=== PATIENT | male | born 1965 | race Caucasian/White ===

== ENCOUNTER 2017-01-06 20:20 | Inpatient (IN) | payer OTHER, MEDICAID ==
[~2017-01-06] VITALS: Ht 188 cm; Wt 103.1 kg
[~2017-01-06 20:20] MED LIST: LORA-303 PO; NOMED
[2017-01-06 20:23] VITALS: BP 153/94; PULSE 106; RESP 20; O2SAT 96
--- NOTE | 2017-01-06 21:07 | ED.REPORT ---
HPI-Allergic Reaction Date of Service Jan 06, 2017 ED Provider: Doc,Ed MD Nursing Notes Stated Complaint: DETOX Chief Complaint: Substance Abuse Nursing Notes Reviewed: Yes Allergies: Coded Allergies: No Known Allergies (Verified Allergy, Unknown, 01/06/17) Scheduled Lorazepam (Ativan) 1 Mg Tablet 1 MG PO ASDIRECTED 1 tablet 3 times a day for 24 hours, then 1 tablet twice a day for 24 hours, then 1 tablet on day 3 Miscellaneous Medications No Historical Medication (No Historical Medication) Ea General Time Seen by MD: 21:08 Past Medical History Past Medical History Alcohol and meth abuse Past Surgical History head injury 2000 Family History alcoholism Smoking History Current Every Day Smoker Social History Drug Use: Meth Other Social History: Poor social support, Homeless Ambulatory Status Independent Physical Exam Initial Vital Signs Vital Signs (First) Date Time Temp Pulse Resp B/P Pulse Ox O2 Delivery O2 Flow Rate FiO2 01/06/17 20:23 37.0 106 20 153/94 96 Room Air Discharge & Departure Referrals: NOPCP (PCP) Enrique West MD Jan 06, 2017 21:07
--- NOTE | 2017-01-06 21:10 | ED.REPORT ---
HPI-Overdose/Alcohol Toxicity Date of Service Jan 06, 2017 ED Provider: Enrique West MD A 51 year old male with a history of recent heart attack or stroke, methamphetamine abuse, heroin abuse and alcohol abuse presents to the ED requesting detox. The pt has been on a two year relapse following a period of sobriety and states that he is "tired of living this way." The pt usually smokes but occasionally shoots. He last used this morning. The pt has been noncompliant with his cardiac medications since he began using and has noticed abdominal pain and lower extremity edema. These symptoms are similar to those he experienced prior to his cardiac or stroke event approximately a year ago. Nursing Notes Stated Complaint: DETOX Chief Complaint: Substance Abuse Nursing Notes Reviewed: Yes Allergies: Coded Allergies: No Known Allergies (Verified Allergy, Unknown, 01/06/17) Scheduled Lorazepam (Ativan) 1 Mg Tablet 1 MG PO ASDIRECTED 1 tablet 3 times a day for 24 hours, then 1 tablet twice a day for 24 hours, then 1 tablet on day 3 Miscellaneous Medications No Historical Medication (No Historical Medication) Ea General Time Seen by Provider: 21:08 Chief Complaint Other (Detox request) Hx Obtained From: Patient Arrived By: Walk-in Onset Occurred: More than a week ago... Symptom Duration: Since onset Similar Sx Previous: Yes Past Medical History Past Medical History Alcohol, heroin and meth abuse [place] Stroke Past Surgical History head injury 2000 cardiac catheterization Family History alcoholism Smoking History Current Every Day Smoker Social History Alcohol Use: >5 per day Drug Use: IV drugs, Meth Other Social History: Poor social support, Homeless Ambulatory Status Independent Review of Systems Review of Systems Note: lower extremity edema Cardiovascular: Denies: Chest pain GI: Reports: Abdominal pain, Denies: Vomiting Skin: Denies Rash Complete sys rev & neg: except as marked. Physical Exam Initial Vital Signs Vital Signs (First) Date Time Temp Pulse Resp B/P Pulse Ox O2 Delivery O2 Flow Rate FiO2 01/06/17 20:23 37.0 106 20 153/94 96 Room Air Initial VS: Reviewed, Vital signs abnormal General/Constitutional: Awake, Alert Appearance / Presentation: Positive: Obese Respiratory / Chest: Atraumatic, Breath sounds NL, Breath sounds = bilat, No respiratory distress Cardiovascular: Heart rate NL, Regular rhythm 3/6 holosystolic murmur Abdomen: Atraumatic, Soft, Non-tender Neurologic: Oriented X3, Speech NL, No motor deficits, No sensory deficits Psychiatric: Affect NL, Mood NL Head / Eyes: Atraumatic, Normocephalic, PERRL, EOMI ENT: Atraumatic, Airway patent, Mucous membranes moist Neck: Atraumatic, Supple, Full range of motion Back: Atraumatic, Full range of motion Skin: Color NL, No rash, Warm, Dry Upper Extremity / MS: Atraumatic, Full range of motion Lower Extremity / Pelvis / MS: Atraumatic, Full range of motion 2+ pitting edema bilaterally, R>L Interpretation & Diagnostics Lab Results Interpretation Result Diagram: 01/06/17 2214 01/06/17 2214 Test 01/06/17 22:14 01/07/17 00:17 White Blood Count 7.5th/mm3 (3.8-10.1) Red Blood Count 4.33mil/mm3 (4.40-5.80) Hemoglobin 12.8g/dL (13.8-17.2) Hematocrit 38.7% (41.0-50.0) Mean Corpuscular Volume 89.4fL (81-100) Mean Corpuscular Hemoglobin 29.6pg (27.0-35.0) Mean Corpuscular Hemoglobin Concent 33.1% (32.0-37.0) Red Cell Distribution Width 17.4% (12.3-15.4) Platelet Count 167bil/L (150-400) Neutrophils (%) (Auto) 58.8% (40-74) Lymphocytes (%) (Auto) 25.8% (14-46) Monocytes (%) (Auto) 11.9% (4-12) Eosinophils (%) (Auto) 2.7% (0-5) Basophils (%) (Auto) 0.7% (0-3) Prothrombin Time 12.2sec (8.1-12.5) Prothromb Time International Ratio 1.14ratio Sodium Level 142mEq/L (134-144) Potassium Level 3.9mEq/L (3.5-5.2) Chloride Level 106mEq/L (97-108) Carbon Dioxide Level 20mmol/L (18-29) Blood Urea Nitrogen 25mg/dL (6-24) Creatinine 1.00mg/dL (0.76-1.27) Estimat Glomerular Filtration Rate 84mL/min (>59) Glucose Level 146mg/dL (60-99) Calcium Level 8.5mg/dL (8.5-10.1) Magnesium Level 1.7mg/dL (1.6-2.6) Total Bilirubin 0.7mg/dL (0.0-1.2) Aspartate Amino Transf (AST/SGOT) 46U/L (0-50) Alanine Aminotransferase (ALT/SGPT) 38U/L (0-44) Alkaline Phosphatase 86U/L (25-150) Total Protein 6.3g/dL (6.4-8.4) Albumin 3.5g/dL (3.4-5.0) Hold Marin Top Tube Received (Received) Hold Urine Received (Received) Lab Results Interpretation: Elevated troponin ECG Interpretation ECG Interpretation: sinus tachycardia with a rate of 101 probable left atrial enlargement anteroseptal infarct, old Time: 21:43 Interpreted by: ED physician X-Ray Chest Interpretation Chest Xray Interpretation: mildly enlarged heart no acute findings Interpretation / Wet Read by: Wet read ED physician Re-Eval/Medical Decision Med Decision/Clinical Course 51-year-old male who was brought up short by his mother's illness. She requested that he leave her bedside and go get clean and sober, which he is attempting to do. He has started to have mild withdrawal symptoms. He has had some chest discomfort, but no ongoing chest pain. Labs are unremarkable with the exception of an elevated troponin. EKG shows no evidence of ischemia or injury. He will be admitted for alcohol withdrawal management and troponin and EKG trending. Source of Hx: Old records Re-Evaluation/Progress : Time of Eval: 23:19 Patient Status: Condition improved Re-Evaluation/Progress Note: Pt rechecked, who is resting comfortably. The diagnosis and plan for admission are discussed. The pt understands and agrees with the plan. All questions are addressed at this time. Consultation #1: Call Returned at: 21:31 Note: Spoke with [facility] to determine bed availability. No beds are available at this time. Consultation #2: Referral / Consult Name: Dionicio Perez MD Consulted With: Hospitalist Call Returned at: 23:33 Mechanical Maintenance Foreman: Agrees with eval, Agrees with plan, Accepts admit Note: Spoke with Dr. Perez, hospitalist, regarding pt's case. Dr. Perez agrees with the evaluation and agrees to admit the pt. Counseled Regarding: Diagnosis, Lab results, Need for admission Discharge & Departure Impression: Primary Impression: Alcohol withdrawal Complication of substance-induced condition: uncomplicated Qualified Code: F10.230 - Alcohol dependence with withdrawal, uncomplicated Additional Impressions: Opiate withdrawal Elevated troponin Disposition: ADMITTED TO HOSPITAL Discharge Condition All VS Reviewed: Yes Condition: Stable Referrals: [facility] [employer] Portions of this note were transcribed by Maynor Pride. I, Dr. West personally performed the history, physical exam and medical decision-making; I reviewed and confirmed the accuracy of the information in the transcribed note. Signed by: Catalina Perera, 01/06/2017 and 0498. copies to: [facility] ; [facility]; [facility] Enrique West MD Jan 06, 2017 21:10 MAYNOR PRIDE Jan 06, 2017 21:28 copies to: [facility] ; [facility]; [facility] Enrique West MD Jan 06, 2017 21:10 MAYNOR PRIDE Jan 06, 2017 21:28
[2017-01-06 22:20] LABS: BASOPHILS % (AUTO) 0.7 % (0-3); EOSINOPHILS % (AUTO) 2.7 % (0-5); MONOCYTES % (AUTO) 11.9 % (4-12); Mean Corpuscular Hemoglobin 29.6 pg (27.0-35.0); Mean Corpuscular Volume 89.4 fL (81-100); NEUTROPHILS % (AUTO) 58.8 % (40-74); Platelet Count 167 bil/L (150-400)
[2017-01-06 22:34] LABS: INR 1.14 ratio
[2017-01-06 22:41] LABS: TROPONIN T 0.015 ug/L (0.0-0.011)
[2017-01-06 22:52] VITALS: BP 142/90; PULSE 94; RESP 18; O2SAT 97
[2017-01-06 22:53] LABS: Magnesium 1.7 mg/dL (1.6-2.6)
[2017-01-06] MEDS ORDERED: Polyethylene Glycol (PEG) 17 Gm Powder PO PRN (23:40)
[2017-01-06] MEDS ORDERED: Alum-Mag Hydrox-Simeth 30 mL Suspension PO PRN (23:40)
[2017-01-06] MEDS ORDERED: Ondansetron 2 mg/mL 2 mL Inj IVPUSH PRN (23:40)
[2017-01-06] MEDS ORDERED: Thiamine Inj 100 MG, Folic Acid Inj 1 MG, Magnesium Sulfate 50% Inj 2 GM, Multivitamins... IV ONE ×5 (23:40)
[2017-01-07] VITALS (8 sets, daily range): BP systolic 135–155; BP diastolic 88–120; PULSE 91–99; RESP 18–24; O2SAT 97–100
--- NOTE | 2017-01-07 00:18 | PCM.HPMED ---
Subjective Date of Service Jan 07, 2017 Primary Provider: Admitting Physician: Primary Care Physician: Noemi Attending Physician: Admit Status: From the Emergency Department, Full Admit, PCC Telemetry Chief Complaint: Requesting Detox History of Present Illness: Mary Lou Munroe is a 51 year old male with reported history of Coronary disease, methamphetamine abuse, heroin abuse and alcohol abuse who presents to [facility] emergency department requesting detox. The pt has been on a two year relapse following a period of sobriety and states that he is "tired of living this way." He also reported he was devastated that he broke up with his long time girlfriend and started drinking again to cope. His last drink was this morning. He also shoots Heroine and Meth about injected himself 4 days ago. He has chest tightness, 2/10 intensity with no radiation. Denies any diaphoresis and no dyspnea. No relieving or exacerbating factor. He did report it was similar to symptoms prior to when he had a heart attack 6 years ago in [facility]. He also reported he had a Stroke The pt has been noncompliant with his cardiac medications since he began using which was 4 months ago. These symptoms are similar to those he experienced prior to his cardiac or stroke event approximately a year ago. Review of Systems: Pertinent positives as noted in HPI. All other systems were reviewed and are negative Allergies Coded Allergies: No Known Allergies (Verified Allergy, Unknown, 01/06/17) Home Medications Patient has not taken any prescription medications for the last 4 months PMH Alcohol Abuse Coronary disease. Last hospitalized 6 years ago in [facility] Stroke Heroine and Meth Abuse . 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 Father drank himself to Mother healthy, lives in [place] Social History Hx Alcohol Use: Yes Hx Substance Use: Yes (marijuana, meth) Hx Tobacco Use: Yes Smoking Status: Current Every Day Smoker Living Arrangement: Homeless (lives at [place] house) Exam Vital Signs Vital Sign - Last Date Time Temp Pulse Resp B/P Pulse Ox O2 Delivery O2 Flow Rate FiO2 01/06/17 22:52 37.0 94 18 142/90 97 Room Air Exam General: Alert, Oriented X3, Cooperative, No acute Distress Eyes: PERRLA, Scleral Anicteric Mouth: Mouth Normal, Mucous Membranes Moist/[place] Neck: Supple, no Thyromegaly, trachea central. Chest & Lungs: Clear to auscultation & percussion, No adventitious breath sounds, no crackles, no wheeze Cardiovascular: Normal S1, Normal S2, No Murmurs/Rubs/Gallops, Regular Rate/ Rhythm, (No JVD, no peripheral edema) Pulses: Radial (present and equal), Dorsalis Pedi (present and equal) Abdomen: Soft, Non-tender, Non-distended, Normoactive bowel tones. Musculoskeletal: Unremarkable. Normal range of motion, no swollen or erythematous joints Extremities: No edema, no cyanosis, no clubbing. Skin: No rashes. Warm and dry, no erythematous areas Neurological: Grossly neurologically intact, Normal Speech, Sensation Intact Lymphatic: Lymph nodes Cervical and Axillary not palpable. Lab and Diagnostics Labs Laboratory Tests Test 01/06/17 22:14 White Blood Count 7.5th/mm3 (3.8-10.1) Red Blood Count 4.33mil/mm3 (4.40-5.80) Hemoglobin 12.8g/dL (13.8-17.2) Hematocrit 38.7% (41.0-50.0) Mean Corpuscular Volume 89.4fL (81-100) Mean Corpuscular Hemoglobin 29.6pg (27.0-35.0) Mean Corpuscular Hemoglobin Concent 33.1% (32.0-37.0) Red Cell Distribution Width 17.4% (12.3-15.4) Platelet Count 167bil/L (150-400) Neutrophils (%) (Auto) 58.8% (40-74) Lymphocytes (%) (Auto) 25.8% (14-46) Monocytes (%) (Auto) 11.9% (4-12) Eosinophils (%) (Auto) 2.7% (0-5) Basophils (%) (Auto) 0.7% (0-3) Prothrombin Time 12.2sec (8.1-12.5) Prothromb Time International Ratio 1.14ratio Sodium Level 142mEq/L (134-144) Potassium Level 3.9mEq/L (3.5-5.2) Chloride Level 106mEq/L (97-108) Carbon Dioxide Level 20mmol/L (18-29) Blood Urea Nitrogen 25mg/dL (6-24) Creatinine 1.00mg/dL (0.76-1.27) Estimat Glomerular Filtration Rate 84mL/min (>59) Glucose Level 146mg/dL (60-99) Calcium Level 8.5mg/dL (8.5-10.1) Magnesium Level 1.7mg/dL (1.6-2.6) Total Bilirubin 0.7mg/dL (0.0-1.2) Aspartate Amino Transf (AST/SGOT) 46U/L (0-50) Alanine Aminotransferase (ALT/SGPT) 38U/L (0-44) Alkaline Phosphatase 86U/L (25-150) Troponin T 0.015ug/L (0.0-0.011) Total Protein 6.3g/dL (6.4-8.4) Albumin 3.5g/dL (3.4-5.0) Hold Marin Top Tube Received (Received) Result Diagram: 01/06/17221301/06/172213 Assessment & Plan Mary Lou Munroe is a 51 year old male with reported history of Coronary disease, methamphetamine abuse, heroin abuse and alcohol abuse who presents to [facility] emergency department requesting detox but was found to have elevated troponin 1. Alcohol Intoxication and withdrawal syndrome. Present on admission No detox bed available tonight and will be closely monitored in the hospital. Last drank this morning. History of Alcohol withdrawal seizures. Patient has previously had detox years ago - [facility] protocol initiated - manager audio consult for placement and resources - continue Thiamine replacement and Banana bag 2 Elevated troponin. Present on admission Suspect demand ischemia but patient reporting history of Coronary disease therefore Non ST elevation Myocardial infarction. EKG showed ischemic changes and no ischemia symptoms - monitor on telemetry - complete echo tomorrow - trending troponin overnight - Aspirin for antiplatelet therapy - consider Heparin drip if pain persists - prescriptions needs upon discharge 3 Polysubstance abuse (Heroine and Meth) Risk for endocarditis but no infectious symptoms at this time. - monitor for withdrawal symptoms 4 Nicotine dependence Cessation discussed and encouraged - Nicotine patch upon request - Acetaminophen as needed for mild pain/fever/headache - Bowel regimen as needed - Antiemetic as needed Patient admitted under inpatient status with expected length of stay > 2 midnights for severity of present symptoms, complexities of treatment plan and risk for adverse event . VTE Prophylaxis: Sub-Q Heparin (Unfractionated) Resuscitation Status: CPR: Attempt Resuscitation Dionicio Perez MD Jan 07, 2017 00:18
[2017-01-07] MEDS: Heparin 5,000 Unit/mL Inj SUBQ SCH ×3 (01:37→15:57)
[2017-01-07] MEDS: 0.9% Sodium Chloride 1,000 ML IV SCH ×3 (02:40→22:06)
--- NOTE | 2017-01-07 05:25 | NUR ---
Admit/CIWA Admitted pt from ED wanting to be detoxified. Pt reports of mild chest pain, mild sob, and moderate headache. CIWA score of the beginning. Upon reassessment currently on 2. Pt has been npo after a snack. Telemetry monitoring noted no abnormal ektopy. Monitoring closely. Addendum: 01/07/17 at 0605 by PJ KOENIG RN CIWA score of 13 at the end of shift. profuse sweating and headache. Reports of feeling nauseated and mild chest tightness. administered 5 mg diazepam per ciwa protocol. Addendum: 01/07/17 at 0628 by PJ KOENIG RN Reassessment post valium. CIWA of 6, pt is asleep.
[2017-01-07] MEDS: Multivit-Miner-Folic Acid-Iron Tablet PO SCH (08:29)
--- NOTE | 2017-01-07 11:04 | DRSVH ---
PROCEDURE: X-RAY CHEST, TWO VIEWS ([id number]) INDICATIONS: chest pain, murmur TECHNIQUE: 2 views of the chest were acquired. COMPARISON: None. FINDINGS: Surgical changes and devices: None. Lungs and pleura: No pleural effusions or pneumothorax. Lungs are clear. Mediastinum: Mediastinal contours are normal. Heart size is normal. Bones and chest wall: No suspicious bony abnormalities. Soft tissues appear unremarkable. IMPRESSION: No radiographic evidence of acute cardiopulmonary pathology. Dictated by: Igor Ojeda M.D. on 01/07/2017 at 8:35 Approved by: Igor Ojeda M.D. on 01/07/2017 at 8:35
[2017-01-07] MEDS: MeTOProlol XL 25 mg ER24 Tablet PO SCH (11:17)
--- NOTE | 2017-01-07 13:09 | NUR ---
spiritual care: pt request Visited with pt this morning who was glad to have a core winding operator visit. Talked about rochelle, addiction, and sobriety. Pt is committed to getting sober again after an intense conversation with his mother in [place]. Pt requested to speak to a hospital social worker regarding rehab placement following his hospital stay. Pt requested a [employer] bible which I provided for him. Blessed him. Spiritual care will continue to follow as needed.
--- NOTE | 2017-01-07 14:29 | PCM.PNMED ---
Subjective Date of Service Jan 07, 2017 Subjective less withdrawal symptoms today.CIWA 6. Troponin trended down. Exam Vital Signs Vital Sign - Last Date Time Temp Pulse Resp B/P Pulse Ox O2 Delivery O2 Flow Rate FiO2 01/07/17 10:31 96 01/07/17 09:45 36.8 20 147/104 97 Room Air Intake and Output 01/06/17 01/06/17 01/07/17 Cumulative From/Thru 15:00 23:00 07:00 01/06/17 20:23 - 01/07/17 06:22 Intake Total 2482 ml 2482 ml Balance 2482 ml 2482 ml Intake Oral 636 ml 636 ml IV Total 1846 ml 1846 ml # Voids 1 1 Exam General: Alert, Oriented X3, Cooperative, No acute Distress Eyes: PERRLA, Scleral Anicteric Mouth: Mouth Normal, Mucous Membranes Moist/[place] Neck: Supple, no Thyromegaly, trachea central. Chest & Lungs: Clear to auscultation & percussion, No adventitious breath sounds, no crackles, no wheeze Cardiovascular: Normal S1, Normal S2, No Murmurs/Rubs/Gallops, Regular Rate/ Rhythm, (No JVD, no peripheral edema) Pulses: Radial (present and equal), Dorsalis Pedi (present and equal) Abdomen: Soft, Non-tender, Non-distended, Normoactive bowel tones. Musculoskeletal: Unremarkable. Normal range of motion, no swollen or erythematous joints Extremities: No edema, no cyanosis, no clubbing. Skin: No rashes. Warm and dry, no erythematous areas Neurological: Grossly neurologically intact, Normal Speech, Sensation Intact Lymphatic: Lymph nodes Cervical and Axillary not palpable. IVs and Medications Medications Reviewed: Medications were reviewed in detail Lab and Diagnostics Result Diagram: 01/06/17221301/06/172213 Assessment & Plan Mary Lou Munroe is a 51 year old male with reported history of Coronary disease, methamphetamine abuse, heroin abuse and alcohol abuse who presents to [facility] emergency department requesting detox but was found to have elevated troponin #. Alcohol Intoxication and withdrawal syndrome. Present on admission No detox bed available tonight and will be closely monitored in the hospital. Last drank this morning. History of Alcohol withdrawal seizures. Patient has previously had detox years ago - [facility] protocol initiated - manager pet consult for placement and resources - continue Thiamine replacement and Banana bag # Elevated troponin. Present on admission Suspect demand ischemia but patient reporting history of Coronary disease therefore Non ST elevation Myocardial infarction. EKG showed ischemic changes and no ischemia symptoms - monitor on telemetry - complete echo pending -down trending troponin - Aspirin , atorvastatin and metoprolol started - prescriptions needs upon discharge for ASA,BB and statin # History of CAD -Aspirin , atorvastatin and metoprolol started # Polysubstance abuse (Heroine and Meth) Risk for endocarditis but no infectious symptoms at this time. - monitor for withdrawal symptoms #Nicotine dependence Cessation discussed and encouraged - Nicotine patch upon request - Acetaminophen as needed for mild pain/fever/headache - Bowel regimen as needed - Antiemetic as needed Disposition: Possible discharge tomorrow if inpatient rehabilitation placement is available if echocardiogram is unrevealing VTE Prophylaxis: Sub-Q Heparin (Unfractionated) Resuscitation Status: CPR: Attempt Resuscitation Adalid Almaraz MD Jan 07, 2017 14:29
--- NOTE | 2017-01-07 15:47 | NUR ---
Daily update Patient has denied pain all day. Patient has had lower CIWA scores or 3-5 most of day. This afternoon patient has CIWA score of 12 and was administered IV Diazepam as ordered. Patient was found to have fluctuating oxygen saturations while sleeping (with and without the use of Diazepam) from lower 80's - mid 90's. Will continue to monitor while sleeping to assess the need for possible supplemental oxygen while sleeping.
--- NOTE | 2017-01-07 16:43 | DRSVH ---
[facility] [address] [place] [address] Echocardiogram Report Name: UMA BERRY RStudy Date: 01/07/2017 Height: 74 in Hospital Exam Location: [facility] Weight: 263 lb Gender: Male BSA: 2.4 m2 : 1965 Age: 51 yrs BP: 145/101 mmHg Reason For Study: Elevated Troponins Ordering Physician: Performed By: Yudi Feldman Referring Physician: LOREN DALTON Interpretation Summary The left ventricle is severely dilated. Left ventricular ejection fraction is estimated to be 20 +/- 5%. There is severe global hypokinesis of the left ventricle. There is severe mitral regurgitation. The right ventricular systolic pressure is estimated at 37 mmHg assuming a right atrial pressure of 15 mm Hg. Procedure: A two-dimensional transthoracic echocardiogram with color flow and Doppler was performed. The study quality was technically adequate. There is no prior echocardiogram noted for this patient. The patient was in normal sinus rhythm during the exam. Left Ventricle: The left ventricle is severely dilated. Left ventricular wall thickness is at the upper limits of normal. Left ventricular ejection fraction is estimated to be 20 +/- 5%. There is severe global hypokinesis of the left ventricle. Right Ventricle: The right ventricle is moderate to severely dilated. Right ventricular systolic function is mildly reduced. Atria: The left atrium is moderately dilated. The right atrium is moderately dilated. The interatrial septum is intact with no evidence for an atrial septal defect. Mitral Valve: The mitral valve leaflets are mildly calcified. There is mild to moderate mitral annular calcification. The mitral valve mean gradient is 4 mmHg. There is severe mitral regurgitation. Aortic Valve: The aortic valve is trileaflet. The aortic valve is slightly calcified. No aortic regurgitation is present. Tricuspid Valve: The tricuspid valve is normal in structure but is abnormal in function. Incomplete coaptation of the tricuspid valve leaflets. There is moderate to severe tricuspid regurgitation. The right ventricular systolic pressure is estimated at 37 mmHg assuming a right atrial pressure of 15 mm Hg. Pulmonic Valve: The pulmonic valve is not well visualized. There is a trace or physiologic amount of pulmonic regurgitation. Great Vessels: The aortic root is normal size. The ascending aorta is at the upper limits of normal in size. The IVC is dilated (diameter is greater than 2.1 cm) and it collapses less than 50% with a sniff. This suggests a high right atrial pressure of 15 mm Hg. Pericardium/ Pleura There is a trivial pericardial effusion noted. There is an anterior echo-free space consistent with a fat pad. There is no pleural effusion. MMode/2D Measurements & Calculations LVIDd: 6.7 cm RA long axis: 6.5 cm LVOT diam LVIDs: 5.7 cm LA A2 area: 26.8 cm FS: 15.1 % LA A4 area: 32.5 cm RA area: 21.5 cm asc Aorta IVSd: 0.98 cm LA length (vol): 6.8 cm RA vol: 60.5 ml Diam: 3.6 cm LVPWd: 1.2 cm LA vol: 108.6 ml RA : 24.8 ml/m2 LA vol index: 44.5 ml/m IVC diam: 2.9 cm EDV(MOD-sp2) LV squires. diameter/BSA LV sys. diameter/BSA (cm/m^2): 2.7 (cm/m^2): 2.3 ESV(MOD-sp2) EF(MOD-sp2) Doppler Measurements & Calculations Ao V2 max: 86.7 cm/sec MVA(VTI) TR max chilango MV V2 mean Ao max P.0 mmHg : 233.5 cm/sec : 92.4 cm/sec Ao mean P.1 mmHg : 1.9 cm2 TR max P.9 mmHgMV mean PG LVOT Max Chilango MR ERO PA V2 max : 79.2 cm/sec : 0.57 2m : 53.0 cm/sec MV V2 VTI PA mean PG : 24.3 cm TERRI(I,D): 3.3 cm : 0.50 mmHg sev ratio: 0.79 Ao V2 mean: 70.2 cm/sec LV V1 max PG MR flow rate PA V2 mean Ao V2 VTI: 13.9 cm : 281.6 cm3/sec : 32.3 cm/sec TERRI(V,D): 3.8 cm2 LV V1 VTI MR PISA radius PA pr(Accel) : 11.0 cm : 25.0 mmHg TERRI indexed to BSA (cm^2/m^2): 1.3 Electronically signed by: Jason Hillman on Reading Physician:01/07/2017 04:42 PM
--- NOTE | 2017-01-07 17:36 | NUR ---
Social Work Note: CD Assessment D/A: PATTERNMAKER PLASTER received order for CD assessment. P: PATTERNMAKER PLASTER met with Pt and discussed the option for a full CD assessment with CDP Puja Mckay. Pt was agreeable to this and signed an JAIRON for this PATTERNMAKER PLASTER to refer to Puja for a CD assessment. PATTERNMAKER PLASTER placed Pt's JAIRON in his chart and provided a copy to Puja Mckay. REBECCA Iglesias, AAC
[2017-01-08] VITALS (9 sets, daily range): BP systolic 135–158; BP diastolic 95–114; PULSE 82–94; RESP 19–24; O2SAT 95–100
[2017-01-08] MEDS: Heparin 5,000 Unit/mL Inj SUBQ SCH ×3 (00:30→18:13)
--- NOTE | 2017-01-08 06:19 | NUR ---
CP/CIWA/Resp At beginning of shift pt had one episode to CP but pointing to epigastric area when asked where pain was, no radiating pain, EKG taken, read by discharge rn and found to be unremarkable. Pt desats into 70-80's when asleep, significant sleep apnea noted. Pt placed on 2L O2 per NC and cont. pulse oxy but pt keeps taking O2 off frequently. CIWA score between 15-17, Valium IV given x4, pt asleep for 2-3 hrs after each administration but has restless during sleep, moaning and groaning, reports nightmares and wakes up confused and needs some time to reorient. Pt pleasant and cooperative but increasingly unsteady and occ. incontinent. Bedalarm activated for safety.
[2017-01-08] MEDS: 0.9% Sodium Chloride 1,000 ML IV SCH (08:27)
[2017-01-08] MEDS: Multivit-Miner-Folic Acid-Iron Tablet PO SCH (08:28)
[2017-01-08] MEDS: MeTOProlol XL 25 mg ER24 Tablet PO SCH (08:30)
[2017-01-08 09:12] LABS: BASOPHILS % (AUTO) 0.5 % (0-3); EOSINOPHILS % (AUTO) 2.2 % (0-5); MONOCYTES % (AUTO) 9.7 % (4-12); Mean Corpuscular Hemoglobin 29.9 pg (27.0-35.0); Mean Corpuscular Volume 92.6 fL (81-100); NEUTROPHILS % (AUTO) 57.6 % (40-74); Platelet Count 170 bil/L (150-400)
[2017-01-08 09:19] LABS: Magnesium 1.9 mg/dL (1.6-2.6); Phosphorus 3.9 mg/dL (2.5-4.9)
--- NOTE | 2017-01-08 14:48 | PCM.PNMED ---
Subjective Date of Service Jan 08, 2017 Subjective he states he has shakiness ,CIWA 15-17 overnight Exam Vital Signs Vital Sign - Last Date Time Temp Pulse Resp B/P Pulse Ox O2 Delivery O2 Flow Rate FiO2 01/08/17 13:24 37.0 86 22 158/114 100 Room Air Intake and Output 01/07/17 01/07/17 01/08/17 Cumulative From/Thru 15:00 23:00 07:00 01/06/17 20:23 - 01/08/17 05:59 Intake Total 2099 ml 1666 ml 6247 ml Output Total 200 ml 300 ml 500 ml Balance 1899 ml 1366 ml 5747 ml Intake Oral 860 ml 549 ml 2045 ml IV Total 1239 ml 1117 ml 4202 ml Output Urine Total 200 ml 300 ml 500 ml # Voids 1 2 # Bowel Movements 0 0 Exam General: Alert, Oriented X3, Cooperative, No acute Distress Eyes: PERRLA, Scleral Anicteric Mouth: Mouth Normal, Mucous Membranes Moist/[place] Neck: Supple, no Thyromegaly, trachea central. Chest & Lungs: Crackles at lung bases Cardiovascular: Normal S1, Normal S2, No Murmurs/Rubs/Gallops, Regular Rate/ Rhythm, (No JVD, no peripheral edema) Pulses: Radial (present and equal), Dorsalis Pedi (present and equal) Abdomen: Soft, Non-tender, Non-distended, Normoactive bowel tones. Musculoskeletal: Unremarkable. Normal range of motion, no swollen or erythematous joints Extremities: No edema, no cyanosis, no clubbing. Skin: No rashes. Warm and dry, no erythematous areas Neurological: Grossly neurologically intact, Normal Speech, Sensation Intact Lymphatic: Lymph nodes Cervical and Axillary not palpable. IVs and Medications Medications Reviewed: Medications were reviewed in detail Lab and Diagnostics Result Diagram: 01/08/1782501/08/17825 X-Rays, CTs and MRIs PROCEDURE: X-RAY CHEST, TWO VIEWS ([id number]) INDICATIONS: chest pain, murmur TECHNIQUE: 2 views of the chest were acquired. COMPARISON: None. FINDINGS: Surgical changes and devices: None. Lungs and pleura: No pleural effusions or pneumothorax. Lungs are clear. Mediastinum: Mediastinal contours are normal. Heart size is normal. Bones and chest wall: No suspicious bony abnormalities. Soft tissues appear unremarkable. IMPRESSION: No radiographic evidence of acute cardiopulmonary pathology. Dictated by: Igor Ojeda M.D. on 01/07/2017 at 8:35 Cardiac Echo Impressions The left ventricle is severely dilated. Left ventricular ejection fraction is estimated to be 20 +/- 5%. There is severe global hypokinesis of the left ventricle. There is severe mitral regurgitation. The right ventricular systolic pressure is estimated at 37 mmHg assuming a right atrial pressure of 15 mm Hg. Assessment & Plan Mary Lou Munroe is a 51 year old male with reported history of Coronary disease, methamphetamine abuse, heroin abuse and alcohol abuse who presents to [facility] emergency department requesting detox but was found to have elevated troponin #. Alcohol Intoxication and withdrawal syndrome. Present on admission No detox bed available tonight and will be closely monitored in the hospital. Last drank this morning. History of Alcohol withdrawal seizures. Patient has previously had detox years ago - [facility] protocol initiated - manager validation consult for placement and resources - continue Thiamine replacement and Banana bag # systolic CHF, probably chronic, due to ischemic cardiomyopathy versus chronic cardiomyopathy -Echocardiogram EF 20% -Patient had history of [place] 6 years ago. No echocardiogram to compare with. He presented with mild chest pain 2/10 and borderline troponin. Discussed with cardiology . Patient not in acute decompensation. Patient noncompliant on medications and started on aspirin, statin and beta estella yesterday.not a candidate for intervention. We will optimize CHF regimen and advise patient to see clinical documentation consultant Dr Soler outpatient for workup of cardiomyopathy. Encouraged to quit alcohol -Continue aspirin, statin, metoprolol. added lisinopril 10 mg daily # Elevated troponin. Present on admission - EKG showed no ischemic changes. No EKG to compare with - monitor on telemetry - complete echo as above -down trending troponin . Level was borderline and unlikely to represent acute infarction - Continue Aspirin , atorvastatin and metoprolol - prescriptions needs upon discharge for ASA,BB ,ACEI and statin # History of CAD -Aspirin , atorvastatin and metoprolol,ACEI started # Polysubstance abuse (Heroine and Meth) Risk for endocarditis but no infectious symptoms at this time. - monitor for withdrawal symptoms #Nicotine dependence Cessation discussed and encouraged - Nicotine patch upon request - Acetaminophen as needed for mild pain/fever/headache - Bowel regimen as needed - Antiemetic as needed Disposition: Possible discharge in 1-2 days if inpatient rehabilitation placement is available VTE Prophylaxis: Sub-Q Heparin (Unfractionated) Resuscitation Status: CPR: Attempt Resuscitation Adalid Almaraz MD Jan 08, 2017 14:48
[2017-01-08] MEDS ORDERED: Furosemide 10 mg/mL 4 mL Inj IVPUSH ONE (14:55)
--- NOTE | 2017-01-08 16:41 | NUR ---
spiritual care: pt request conversational visit. Pt disclosed his hopes for rehab process and his familiarity with detoxing as well as his body's reactions to physical effects. pt expressed sense of urgency ("don't have the next drink or ") as he described his physical condition and feelings of helplessness. pt explained "i can't move" but he managed to swing his legs onto bed. drowsy,
--- NOTE | 2017-01-08 17:36 | NUR ---
[facility] pt has been scoring a 13 throughout shift. Administered Valium 10 mg IVP X4. Pt seems to get temporary relief and is able to sleep for about two hours. Pt has had intermittent confusion and disorientation. Pt has removed tele X2, oxygen multiple times, and has be urinated on his bed and floor while attempting to use his urinal. Pt has been reminded multiple times to use call light but has failed to do so.
[2017-01-09] VITALS (8 sets, daily range): BP systolic 102–156; BP diastolic 74–120; PULSE 52–90; RESP 13–25; O2SAT 93–99
[2017-01-09] MEDS: Heparin 5,000 Unit/mL Inj SUBQ SCH ×3 (01:00→16:57)
[2017-01-09] MEDS: Dexmedetomidine 400 mCg/100 mL NS Premix IV SCH ×3 (02:40→15:05)
[2017-01-09] MEDS ORDERED: chlordiazePOXIDE 25 mg Capsule PO SCH (03:20)
--- NOTE | 2017-01-09 04:04 | PCM.PNMED ---
Subjective Date of Service Jan 09, 2017 Subjective Overnight Critical Care Progress Note The patient became acutely combative at approximately 01:30 requiring a code Marin to be called followed by 4 point restraints and after failing diazepam therapy required Precedex administration per nursing [facility] protocol orders. Per Nursing report the patient had be alert and oriented at the beginning of shift, however the patient had required more than 100mg total of Diazepam over the course of 7 hours. The patient was already on Precedex IV when he was evaluated by me at which point the patient was fairly cooperative however relatively somnolent in no acute distress. Exam Vital Signs Vital Sign - Last Date Time Temp Pulse Resp B/P Pulse Ox O2 Delivery O2 Flow Rate FiO2 01/09/17 01:07 153/109 01/09/17 01:03 90 24 97 Room Air 01/08/17 22:18 36.5 Intake and Output 01/08/17 01/08/17 01/09/17 Cumulative From/Thru 15:00 23:00 07:00 01/06/17 20:23 - 01/08/17 22:18 Intake Total 1813 ml 8060 ml Output Total 1450 ml 1950 ml Balance 363 ml 6110 ml Intake Oral 1036 ml 3081 ml IV Total 777 ml 4979 ml Output Urine Total 1450 ml 1950 ml # Voids 5 7 # Bowel Movements 1 1 Exam General: Somnolent but Cooperative middle age man in 4 point restraints, in no acute Distress Eyes: Pupils equal round and reactive to light, anicteric sclera, noninjected conjunctiva HENT: Normocephalic atraumatic, moist mucous membranes without central cyanosis Neck: Supple, trachea midline, without thyromegaly or JVD Cardiovascular: Regular rate and regular rhythm, S1-S2 present, without murmurs rubs or gallops noted Lungs: Clear to auscultation bilaterally without wheezing rales or rhonchi Abdomen: Soft, nontender, nondistended, tympanic to percussion, normal active bowel sounds, without organomegaly Extremities: No cyanosis clubbing or edema noted, pulses intact bilaterally at dorsalis pedis and radial : No Juan catheter in place Skin: Warm and dry Neuro: Nonfocal, unable to assess given somnolence Psych: unable to assess given somnolence Lab and Diagnostics Result Diagram: 01/08/1782501/08/17825 X-Rays, CTs and MRIs PROCEDURE: X-RAY CHEST, TWO VIEWS ([id number]) INDICATIONS: chest pain, murmur TECHNIQUE: 2 views of the chest were acquired. COMPARISON: None. FINDINGS: Surgical changes and devices: None. Lungs and pleura: No pleural effusions or pneumothorax. Lungs are clear. Mediastinum: Mediastinal contours are normal. Heart size is normal. Bones and chest wall: No suspicious bony abnormalities. Soft tissues appear unremarkable. IMPRESSION: No radiographic evidence of acute cardiopulmonary pathology. Dictated by: Igor Ojeda M.D. on 01/07/2017 at 8:35 Cardiac Echo Impressions The left ventricle is severely dilated. Left ventricular ejection fraction is estimated to be 20 +/- 5%. There is severe global hypokinesis of the left ventricle. There is severe mitral regurgitation. The right ventricular systolic pressure is estimated at 37 mmHg assuming a right atrial pressure of 15 mm Hg. Assessment & Plan Mary Lou Munroe is a 51 year old male with reported history of Coronary disease, methamphetamine abuse, heroin abuse and alcohol abuse who presents to [facility] emergency department requesting detox but was found to have elevated troponin. #. Alcohol Intoxication and withdrawal syndrome. Present on admission - Last drink on the morning of 01/06. Patient has a history of Alcohol withdrawal seizures. Patient has previously had detox years ago - CIWA protocol initiated, required advancement to Precedex drip per protocol - Scheduled Librium 25mg PO q6 on top of Precedex after patient passed a nurse swallow evaluation, given the need for benzodiazepine administration to avoid alcohol withdrawal seizures - automotive service manager consult for placement and resources - continue Thiamine replacement # History of Polysubstance Abuse, chronic - Reported history of injectable drug use - Hepatitis B, C and HIV ordered VTE Prophylaxis: Sub-Q Heparin (Unfractionated) Resuscitation Status: CPR: Attempt Resuscitation Attending Statement The patient was seen and examined together with Dr. Holden on 01/09 and I agree with the history, exam and plan as outlined in the note above. Lewis Dobbs DO Jan 09, 2017 04:04 Dionicio Perez MD Jan 11, 2017 14:41 acute infarction - Continue Aspirin , atorvastatin and metoprolol - prescriptions needs upon discharge for ASA,BB ,ACEI and statin # History of CAD -Aspirin , atorvastatin and metoprolol,ACEI started # Polysubstance abuse (Heroine and Meth) Risk for endocarditis but no infectious symptoms at this time. - monitor for withdrawal symptoms #Nicotine dependence Cessation discussed and encouraged - Nicotine patch upon request - Acetaminophen as needed for mild pain/fever/headache - Bowel regimen as needed - Antiemetic as needed Disposition: Possible discharge in 1-2 days if inpatient rehabilitation placement is available VTE Prophylaxis: Sub-Q Heparin (Unfractionated) Resuscitation Status: CPR: Attempt Resuscitation Lewis Dobbs DO Jan 09, 2017 04:04
--- NOTE | 2017-01-09 04:49 | NUR ---
CIWA/Transfer CIWA throughout shift 12-25 with noted visual hallucinations and progressively worsening agitation despite prn Valium administration. Transferred to CCU for further monitoring after Valium noted to not be effective. Patient became combative attempting to get physical with staff and threatening to assault staff in room. Do pineda initiated and patient restrained for patient and staff safety. Care assumed by receiving CCU RN. Personal belongings transferred with patient to 2009.
--- NOTE | 2017-01-09 05:10 | NUR ---
Ciwa Transfered into [id number] from [facility]. Precedex gtt started on [facility] and continued in CCU at 0.7mcg/kg/h. CIWA currently 11. 4 point locking restraints placed on [facility] during code pineda and continued in CCU. See Patient scow hand flowsheet. Tele sinus rhythm 60-80. Incontinent of urine prior to admit.
[2017-01-09] MEDS: Multivit-Miner-Folic Acid-Iron Tablet PO SCH (08:30)
[2017-01-09] MEDS: MeTOProlol XL 25 mg ER24 Tablet PO SCH (08:30)
--- NOTE | 2017-01-09 11:00 | NUR ---
Social Work: Screen/Multidisciplinary Rounds D: Per EMR review, pt is a 51 year old male admitted for Alcohol withdrawal/Opiate Withdrawal, Elevated Trop. Pt is [place] Blind/Disabled with [facility] Medicaid. PCP is not listed. NOK is Uriah Munroe, brother. Advanced directives not on file. Readmit risk is low, 07/30. Pt discussed in am rounds. Pt transferred into CCU overnight. Pt signed an JAIRON to complete bedside assessment with [facility]. ER TEMPERATURE CONTROL INSPECTOR has provided this referral and CDP, Puja Mckay, is following and attempted to see the patient overnight to begin assessment. At this time, the pt's CIWA and withdrawal symptoms are a barrier to completing assessment. A: Pt who is currently in CCU. P: TEMPERATURE CONTROL INSPECTOR to continue to follow to assess for discharge needs; CDP from [place] to continue to attempt to meet with the patient to coordinate bedside assessment and assess pt for CD treatment needs. REBECCA Velasquez
[2017-01-09] MEDS: Dextrose 5% 0.45% NaCl 1,000 ML IV SCH (13:34)
[2017-01-09] MEDS ORDERED: PHENobarbital 65 mg/mL Inj IV ONE (14:40)
--- NOTE | 2017-01-09 16:30 | PCM.PNMED ---
Subjective Date of Service Jan 09, 2017 Subjective Overnight Events: Patient became very agitated and aggressive over night, having hallucinations and unresponsive to Valium. He was started on a precedex drip and transferred to the ICU. Today, Mary Lou is confused and asks "where am I" and is not very responsive to direct questions, so it's difficult to subjectively assess how he is. Throughout the day, multiple code percy have been called as he is becoming very agitated and aggressive spontaneously, which has required valium. Exam Vital Signs Vital Sign - Last Date Time Temp Pulse Resp B/P Pulse Ox O2 Delivery O2 Flow Rate FiO2 01/09/17 03:00 80 23 126/82 97 OxyMask 6.00 01/08/17 22:18 36.5 Intake and Output 01/08/17 01/08/17 01/09/17 Cumulative From/Thru 15:00 23:00 07:00 01/06/17 20:23 - 01/09/17 06:25 Intake Total 1813 ml 67 ml 8127 ml Output Total 1450 ml 1950 ml Balance 363 ml 67 ml 6177 ml Intake Oral 1036 ml 3081 ml IV Total 777 ml 67 ml 5046 ml Output Urine Total 1450 ml 1950 ml # Voids 5 1 8 # Bowel Movements 1 1 Exam General: Confused and aggressive throughout the day HEENT: Normocephalic, atraumatic. External ears without defect. Pupils equal, round. Anicteric sclerae, Cardiovascular: Regular rate and rhythm with no murmurs, rubs, or gallops appreciated Pulmonary: Clear to auscultation bilaterally with no crackles, wheezes, or rhonchi. Normal respiratory effort with no use of accessory muscles. Abdomen: Bowel tones present. Soft, nontender, nondistended. Extremities: No clubbing, cyanosis, edema Skin: Normal temperature, turgor, and texture; no rash, ulcers, or subcutaneous nodules appreciated. Neurological: Cranial nerves grossly intact. Normal muscle strength, tone, and bulk. Psychiatric: Confused, unaware of where is he is and why he is here. Lab and Diagnostics Item Value Date Time Ammonia 51 ug/dL 01/07/17 0909 Troponin T 0.014 ug/L H 01/07/17 0220 Troponin T 0.010 ug/L 01/07/17 0909 Troponin T 0.015 ug/L H 01/06/17 2214 Result Diagram: 01/08/1726 01/08/17825 X-Rays, CTs and MRIs PROCEDURE: X-RAY CHEST, TWO VIEWS ([id number]) INDICATIONS: chest pain, murmur TECHNIQUE: 2 views of the chest were acquired. COMPARISON: None. FINDINGS: Surgical changes and devices: None. Lungs and pleura: No pleural effusions or pneumothorax. Lungs are clear. Mediastinum: Mediastinal contours are normal. Heart size is normal. Bones and chest wall: No suspicious bony abnormalities. Soft tissues appear unremarkable. IMPRESSION: No radiographic evidence of acute cardiopulmonary pathology. Dictated by: Igor Ojeda M.D. on 01/07/2017 at 8:35 Cardiac Echo Impressions The left ventricle is severely dilated. Left ventricular ejection fraction is estimated to be 20 +/- 5%. There is severe global hypokinesis of the left ventricle. There is severe mitral regurgitation. The right ventricular systolic pressure is estimated at 37 mmHg assuming a right atrial pressure of 15 mm Hg. Assessment & Plan Mary Lou Munroe is a 51 year old male with reported history of Coronary disease, methamphetamine abuse, heroin abuse and alcohol abuse who presents to [facility] emergency department requesting detox but was found to have elevated troponin. Alcohol Intoxication and withdrawal syndrome. Present on admission No detox bed available tonight and will be closely monitored in the hospital. Last drank this morning. History of Alcohol withdrawal seizures. Patient has previously had detox years ago. During this encounter, he has been very aggressive spontaneously after a somnolent period requiring immediate valium. Valium seems to last almost 3 hours before each episode. - CIWA protocol initiated - manager professional development consult for placement and resources - Continue Thiamine, folate, multivitamin - Patient to recieve Phenobarbitol 130 mg scheduled once in the afternoon and q8h for two more times, to stop tomorrow morning. Valium if CIWA greater than 10. - Lorazepam drip started 1800 on 01/09/17 - Stop Precedex drip evening of 01/09/17. - As patient may also be withdrawing from opiates, Dilaudid 0.5 mg q2h prn and clonidine 0.1 mg patch - Plan for speech evaluation tomorrow - As patient is NPO D51/2NS 60 mL/hr started. Will be cautious as EF of only 20% . Systolic CHF, probably chronic, due to ischemic cardiomyopathy versus chronic cardiomyopathy -Echocardiogram EF 20% -Patient had history of [place] 6 years ago. No echocardiogram to compare with. He presented with mild chest pain 2/10 and borderline troponin. Discussed with cardiology . Patient not in acute decompensation. Patient noncompliant on medications and started on aspirin, statin and beta estella yesterday.not a candidate for intervention. We will optimize CHF regimen and advise patient to see broadcast operations director Dr Soler outpatient for workup of cardiomyopathy. Encouraged to quit alcohol. -Continue aspirin, statin, metoprolol. added lisinopril 10 mg daily Elevated troponin. Present on admission - EKG showed no ischemic changes. No EKG to compare with - monitor on telemetry - complete echo as above - Downtrending troponin . Level was borderline and unlikely to represent acute infarction - Continue Aspirin , atorvastatin and metoprolol - prescriptions needs upon discharge for ASA, BB ,ACEI and statin History of CAD - Aspirin , atorvastatin and metoprolol, ACEI started Polysubstance dependence (Heroine and Meth) Risk for endocarditis but no infectious symptoms at this time. - monitor for withdrawal symptoms Nicotine dependence Cessation discussed and encouraged - Nicotine patch upon request - Acetaminophen as needed for mild pain/fever/headache - Bowel regimen as needed - Antiemetic as needed VTE Prophylaxis: Sub-Q Heparin (Unfractionated) Resuscitation Status: CPR: Attempt Resuscitation Attending Statement A proximally 45 minutes of critical care time was provided for patient in severe alcohol withdrawal requiring close monitoring and rapid, ongoing escalation in medical management. The patient was seen and examined together with Dr. Morrissey on 01/09/2017 and I agree with the history, exam and plan as outlined in the note above. . Dionicio Morrissey DO Jan 09, 2017 06:33 Jorden Silva MD Jan 10, 2017 08:29
[2017-01-09] MEDS ORDERED: HYDROmorphone 0.5 mg/0.5 mL iSecure Syringe IVPUSH PRN (16:55)
[2017-01-09] MEDS: Thiamine Inj 100 MG in Dextrose 5% 50 ML IM SCH (16:58)
--- NOTE | 2017-01-09 17:09 | CONS ---
[address] [address] CONSULTATION REPORT PATIENT: UMA BERRY : 1965 MR#: [id number] ADMIT: 01/07/2017 JOB ID: [id number] DATE OF SERVICE: 01/09/2017 PULMONARY CRITICAL CARE CONSULTATION: This patient is a 51-year-old man with history of polysubstance abuse including methamphetamines, heroin and alcohol, seen in consultation at the request of Dr. Silva for alcohol withdrawal. HISTORY OF PRESENT ILLNESS: The patient is currently alternating between extremely somnolent and extremely combative and agitated and therefore no history could be obtained directly from the patient. Based on review of medical records, however he has a history of coronary artery disease, methamphetamine, heroin and alcohol use and presented to the emergency department asking for detox from alcohol. He was I believe initially admitted to the [facility] and then transferred to PCU unit and then transferred to the ICU because of episodes of combativeness requiring a Code Hernandez being called. Today itself he has had at least two Code Justin called during the daytime, despite receiving one dose of IV phenobarbital this morning and then again a 2nd dose this afternoon. He has received multiple doses of 10-20 mg pushes of IV diazepam practically every hour all day today in addition to the two separate doses of phenobarb 130 mg received today. PAST MEDICAL HISTORY, SOCIAL HISTORY, FAMILY HISTORY: Per review of medical records. He has a reported history of polysubstance abuse as described above, coronary artery disease and stroke. He does have history of tobacco use and I do not have much information beyond this. PHYSICAL EXAMINATION: Vital signs reviewed. Temperature 34.6, pulse 59, respirations 14, BP 109/86, sats 96% on 2 L nasal cannula. He is lying in bed, usually trying to fight off providers caring for him and verbally sometimes difficult to understand but more often than not, shouting abuse. I did not examine him in any further detail. LABORATORY DATA: Labs reviewed. IMAGING: Chest x-ray reviewed. Lungs are clear. ASSESSMENT AND RECOMMENDATIONS: 1. Acute alcohol withdrawal. 2. History of polysubstance abuse including heroin, methamphetamine and alcohol. A 51-year-old man with severe alcohol withdrawal who has been extremely refractory to all of our meds. He has received two doses of phenobarb 130 mg IV since this morning and numerous doses of diazepam 10-20 mg practically every hour, has had at least two situations where he came close to harming himself and staff. At this point, I really would like to start lorazepam infusion. I do not think Precedex will be adequate for him. We are going to start the lorazepam at 10 mg an hour which seems to be basic diazepam need. My hope is that this in addition to scheduled phenobarb at 10 p.m. and again at 6 a.m. will help control him overnight. He still has diazepam pushes available and he is on a low dose of Precedex which I think can be weaned off once the lorazepam is on. He is getting folate, multivitamin and thiamine in the meantime. CRITICAL CARE TIME: 40 minutes. I will follow up tomorrow.
[2017-01-09] MEDS: LORazepam 100 mg/100 mL NS 100 MG in IV Premix 1 EACH IV SCH (18:10)
--- NOTE | 2017-01-09 19:20 | NUR ---
ETOH withdrawal.. Pt was somnolent but briefly conversant this am scoring a CIWA of 16. Valium administered and pt rested for several hours and was able to have precedex weaned, but since has been note to agitate when trying to void with nursing assist to the point of violent gestures of hitting and attempts to jump out of bed. TRISHA pineda has been called twice on this pt requiring frequent valium administration. This afternoon again was beginning to agitate. Seen by Dr Tsang and Ativan gtt was started. Initial gtt was 10 mg an hour but this was decreased to 5 mg/hr due to apnea noted. Precedex gtt dc'd also. Have been unable to accurately score CIWA due to pt's sedative state or his agitation as he is not cooperative in answering questions. Bed alarm is engaged and sitter is at bedside due to pt's impulsive behaviour.
[2017-01-10] VITALS (7 sets, daily range): BP systolic 105–142; BP diastolic 74–101; PULSE 61–81; RESP 12–21; O2SAT 93–99
[2017-01-10] MEDS: Heparin 5,000 Unit/mL Inj SUBQ SCH ×3 (00:30→16:43)
[2017-01-10] MEDS: Dextrose 5% 0.45% NaCl 1,000 ML IV SCH ×2 (03:45→20:25)
--- NOTE | 2017-01-10 04:53 | NUR ---
CIWA, sedation Vs as noted. Continues on Ativa 5mg/h along with D51/2ns at 60ml/h. Resting quietly most of the night. Sitter with PT through the night. Arouses intermittently to reposition independently then falls asleep immediately. Denies urge to void. Requires assistance keeping lines in place. CIWA assessments limited due to sedation.
--- NOTE | 2017-01-10 06:48 | PCM.PNMED ---
Subjective Date of Service Jan 10, 2017 Subjective Overnight Events: Patient recieved phenobarbtol 130 mg at 2200 and 0600. Also is on lorazepam drip. Today, Mr. Munroe is resting in bed and in no acute distress. He is somnolent as he is on a lorazepam drip and been receiving phenobarbital. Unable to assess how he is subjectively feeling because of this. Exam Vital Signs Vital Sign - Last Date Time Temp Pulse Resp B/P Pulse Ox O2 Delivery O2 Flow Rate FiO2 01/10/17 04:00 69 14 126/98 98 Nasal Cannula 2.00 01/09/17 16:00 34.5 Intake and Output 01/09/17 01/09/17 01/10/17 Cumulative From/Thru 15:00 23:00 07:00 01/06/17 20:23 - 01/10/17 06:22 Intake Total 532 ml 770 ml 9429 ml Output Total 120 ml 0 ml 2070 ml Balance 412 ml 770 ml 7359 ml Intake Oral 0 ml 3081 ml IV Total 532 ml 770 ml 6348 ml Output Urine Total 120 ml 0 ml 2070 ml # Voids 5 13 # Bowel Movements 0 1 Exam General: Somnolent, in no acute distressed, well nourished HEENT: Normocephalic, atraumatic. External ears without defect. Pupils equal, round. Anicteric sclerae, Cardiovascular: Regular rate and rhythm with no murmurs, rubs, or gallops appreciated Pulmonary: Clear to auscultation bilaterally with no crackles, wheezes, or rhonchi. Normal respiratory effort with no use of accessory muscles. Abdomen: Bowel tones present. Soft, nontender, nondistended. Extremities: No clubbing, cyanosis, edema Skin: Normal temperature, turgor, and texture; no rash, ulcers, or subcutaneous nodules appreciated. Neurological: Cranial nerves grossly intact. Normal muscle strength, tone, and bulk. Psychiatric: Somnolent Lab and Diagnostics Result Diagram: 01/08/1782501/08/17825 X-Rays, CTs and MRIs PROCEDURE: X-RAY CHEST, TWO VIEWS ([id number]) INDICATIONS: chest pain, murmur TECHNIQUE: 2 views of the chest were acquired. COMPARISON: None. FINDINGS: Surgical changes and devices: None. Lungs and pleura: No pleural effusions or pneumothorax. Lungs are clear. Mediastinum: Mediastinal contours are normal. Heart size is normal. Bones and chest wall: No suspicious bony abnormalities. Soft tissues appear unremarkable. IMPRESSION: No radiographic evidence of acute cardiopulmonary pathology. Dictated by: Igor Ojeda M.D. on 01/07/2017 at 8:35 Cardiac Echo Impressions The left ventricle is severely dilated. Left ventricular ejection fraction is estimated to be 20 +/- 5%. There is severe global hypokinesis of the left ventricle. There is severe mitral regurgitation. The right ventricular systolic pressure is estimated at 37 mmHg assuming a right atrial pressure of 15 mm Hg. Assessment & Plan Mary Lou Munroe is a 51 year old male with reported history of Coronary disease, methamphetamine abuse, heroin abuse and alcohol abuse who presents to [facility] emergency department requesting detox but was found to have elevated troponin. Alcohol Intoxication and withdrawal syndrome. Present on admission Last drink 01/06/17 morning. History of Alcohol withdrawal seizures. Patient has previously had detox years ago. During this encounter, he has been very aggressive spontaneously after a somnolent period requiring immediate valium. Valium seems to last almost 3 hours before each episode. - CISD protocol initiated - international sales manager consult for placement and resources - Continue Thiamine, folate, multivitamin - Phenobarbital scheduled for 1800. May consider q24h phenobarbital afterwards. - Lorazepam drip started 1800 on 01/09/17. Run overnight and may try to wean 01/11 - As patient may also be withdrawing from opiates, Dilaudid 0.5 mg q2h prn and clonidine 0.1 mg patch - Plan for speech evaluation tomorrow - As patient is NPO D51/2NS 60 mL/hr started. Will be cautious as EF of only 20% . Systolic CHF, probably chronic, due to ischemic cardiomyopathy versus chronic cardiomyopathy -Echocardiogram EF 20% -Patient had history of [place] 6 years ago. No echocardiogram to compare with. He presented with mild chest pain 2/10 and borderline troponin. Discussed with cardiology . Patient not in acute decompensation. Patient noncompliant on medications and started on aspirin, statin and beta estella yesterday.not a candidate for intervention. We will optimize CHF regimen and advise patient to see multi mission helicopter aircrewman Dr Soler outpatient for workup of cardiomyopathy. Encouraged to quit alcohol. -Continue aspirin, statin, metoprolol. added lisinopril 10 mg daily Elevated troponin. Present on admission - EKG showed no ischemic changes. No EKG to compare with - monitor on telemetry - complete echo as above - Downtrending troponin . Level was borderline and unlikely to represent acute infarction - Continue Aspirin , atorvastatin and metoprolol - prescriptions needs upon discharge for ASA, BB ,ACEI and statin History of CAD - Aspirin , atorvastatin and metoprolol, ACEI started Polysubstance dependence (Heroine and Meth) Risk for endocarditis but no infectious symptoms at this time. - monitor for withdrawal symptoms Nicotine dependence Cessation discussed and encouraged - Nicotine patch upon request - Acetaminophen as needed for mild pain/fever/headache - Bowel regimen as needed - Antiemetic as needed VTE Prophylaxis: Sub-Q Heparin (Unfractionated) VTE Mechanical Devices: Intermittant Pneumatic CD Resuscitation Status: CPR: Attempt Resuscitation Attending Statement The patient was seen and examined together with Dr. Morrissey on 01/10/2017 and I agree with the history, exam and plan as outlined in the note above. . Dionicio Morrissey DO Jan 10, 2017 06:48 Jorden Silva MD Jan 11, 2017 07:57
[2017-01-10] MEDS: Multivit-Miner-Folic Acid-Iron Tablet PO SCH (07:16)
[2017-01-10] MEDS: MeTOProlol XL 25 mg ER24 Tablet PO SCH (07:17)
[2017-01-10] MEDS: Thiamine Inj 100 MG in Dextrose 5% 50 ML IM SCH (07:57)
[2017-01-10] MEDS: LORazepam 100 mg/100 mL NS 100 MG in IV Premix 1 EACH IV SCH ×2 (08:58→12:13)
--- NOTE | 2017-01-10 10:08 | PROG NOTE ---
[address] [address] PROGRESS NOTE PATIENT: UMA BERRY : 1965 MR#: [id number] ADMIT: 01/07/2017 JOB ID: [id number] DATE: 01/10/2017 PULMONARY PROGRESS NOTE: The patient is a 51-year-old man seen in followup for alcohol withdrawal. INTERVAL HISTORY: Yesterday he was having significant problems with multiple episodes of agitation that were uncontrolled despite doses of phenobarb and IV diazepam. For that reason, we started a lorazepam drip yesterday evening initiated at 10 mg an hour. Overnight, he did get additional doses of phenobarb at 10 p.m. and then again at 6 a.m., but he has been calm throughout the night. His lorazepam drip has been tapered down and he is currently at 5 mg an hour. REVIEW OF SYSTEMS: Could not be obtained since he is somnolent. PHYSICAL EXAMINATION: Vital signs reviewed. He is afebrile. Pulse 74, respirations 12, BP 128/97, sats 97% on 2 L nasal cannula. General: He is asleep, snoring and not responding to voice at the moment. Chest is clear to auscultation. LABORATORIES: Reviewed but no labs were drawn today because he was a difficult IV stick and I told them it was not necessary. ASSESSMENT/RECOMMENDATIONS: 1. Acute alcohol withdrawal/delirium tremens. 2. History of polysubstance abuse including heroin, methamphetamine and alcohol. A 51-year-old man with severe alcohol withdrawal was extremely difficult to manage throughout the day yesterday but seems much calmer right now on a regimen of IV lorazepam infusion which is currently at 5 mg an hour in addition to phenobarb which he has received q.8 hours until this morning. He has not received any additional diazepam boluses. At this point, I would recommend continuing lorazepam drip and tapering as tolerated. He has no additional scheduled phenobarbital ordered and I think it would be mcdaniel to give him an additional dose of this sometime this evening in addition to the lorazepam. If he continues to be stable, I may not need to see him tomorrow. [facility]
[2017-01-10] MEDS: LORazepam Inj 100 MG in 0.9% Sodium Chloride 100 ML IV PRN ×2 (15:42→22:04)
[2017-01-10 16:58] LABS: BASOPHILS % (AUTO) 0.6 % (0-3); EOSINOPHILS % (AUTO) 1.5 % (0-5); MONOCYTES % (AUTO) 11.1 % (4-12); Mean Corpuscular Hemoglobin 29.8 pg (27.0-35.0); Mean Corpuscular Volume 92.3 fL (81-100); NEUTROPHILS % (AUTO) 61.8 % (40-74); Platelet Count 156 bil/L (150-400)
--- NOTE | 2017-01-10 18:15 | NUR ---
CIWA/sedation/bladder Pt CIWA score ranged from 7 to 20 during the shift, pt very restless and somewhat agitated intermittently. Titrated ativan gtt from 5mg up to 10mg/hr (see CCU flow sheet) based on pts CIWA and RASS scores. Pt only urinated 50ml so bladder scanned pt in afternoon and he had 91ml in there. Bladder soft, non distended and non tender. No sitter during shift, so frequent rounding, oral care and reorientation done. Pt turning independently in bed.
[2017-01-11] VITALS: BP 127/86; PULSE 82; RESP 17; O2SAT 99
[2017-01-11] MEDS: Heparin 5,000 Unit/mL Inj SUBQ SCH ×3 (00:30→17:17)
[2017-01-11 02:48] LABS: BASOPHILS % (AUTO) 0.6 % (0-3); EOSINOPHILS % (AUTO) 1.7 % (0-5); MONOCYTES % (AUTO) 9.7 % (4-12); Mean Corpuscular Hemoglobin 29.7 pg (27.0-35.0); Mean Corpuscular Volume 92.4 fL (81-100); Platelet Count 153 bil/L (150-400)
[2017-01-11 04:00] VITALS: BP 116/80; PULSE 78; RESP 20; O2SAT 91
--- NOTE | 2017-01-11 05:54 | NUR ---
CIWA, sedation VS as noted. CIWA 2-3 with Ativan gtt at 8mg/h through the night. Pt arouses to answer some questions appropriately then mumbles and falls asleep. IVF D5 1/2ns increased to 75ml/h after 250ml ns bolus. Voided 400ml katelyn uop. Sats on 2-3l/nc mid 90s. Tele sinus rhythm 80s.
[2017-01-11 08:00] VITALS: BP 136/98; PULSE 76; RESP 21; O2SAT 96
[2017-01-11] MEDS: MeTOProlol XL 25 mg ER24 Tablet PO SCH (08:11)
[2017-01-11] MEDS: Multivit-Miner-Folic Acid-Iron Tablet PO SCH (08:11)
[2017-01-11] MEDS: Thiamine Inj 100 MG in Dextrose 5% 50 ML IM SCH (08:15)
[2017-01-11] MEDS ORDERED: PHENobarbital 65 mg/mL Inj IV ONE ×3 (09:25→20:00)
[2017-01-11] MEDS: LORazepam Inj 100 MG in 0.9% Sodium Chloride 100 ML IV PRN (10:17)
--- NOTE | 2017-01-11 11:36 | PROG NOTE ---
[address] [address] PROGRESS NOTE PATIENT: UMA BERRY : 1965 MR#: [id number] ADMIT: 01/07/2017 JOB ID: [id number] DATE: 01/11/2017 PULMONARY PROGRESS NOTE: IDENTIFICATION: The patient is a 51-year-old man admitted to the ICU with alcohol withdrawal/severe delirium tremens. INTERVAL HISTORY: He had a calm night, but did have some agitation yesterday afternoon because of which his lorazepam drip at to be increased. He did get a dose of phenobarb 130 mg at 6 p.m. yesterday evening. Currently he has calm, lying in bed, but he has gurgly upper airway sounds suggesting secretions in the upper airway. REVIEW OF SYSTEMS: Could not be obtained because he is quite somnolent. PHYSICAL EXAMINATION: Vital signs reviewed. Temperature 36.9, pulse 76, respirations 21, BP 136/98, sats 96% on 4 L nasal cannula. General lying in bed, somnolent. Has loud gurgly upper airway sounds that clear with coughing. He does cough on command and is able to clear his secretions. Chest clear except for transmitted upper airway sounds. LABORATORIES: Reviewed. ASSESSMENT AND RECOMMENDATIONS: 1. Severe alcohol withdrawal/delirium tremens. 2. History of polysubstance abuse including heroin, methamphetamine, and alcohol. He is slowly improving and requiring less in the way of benzodiazepines and phenobarbital. He is currently on lorazepam infusion at 4 mg an hour and his last dose of phenobarb was 130 mg at 6 p.m. yesterday evening. Based on how he did yesterday, with increased agitation in the afternoon, I suspect he still needs some phenobarb in addition to the lorazepam for the next 24 hours, and I recommended to the primary team to give him 65 mg of phenobarb now and another dose tonight at 8 p.m. I am hoping this will get him through the next 24 hours and we can wean off the Ativan drip starting tomorrow and just use IV pushes of Ativan. From a respiratory standpoint, he is on a little bit of oxygen and I think this is due to atelectasis, hypoventilation. He is however clearing his secretions himself and coughs when reminded. Dr. Chu takes over the pulmonary service tomorrow. Please contact him for any further issues.
[2017-01-11 12:00] VITALS: BP 141/95; PULSE 83; RESP 24; O2SAT 100
[2017-01-11] MEDS: Dextrose 5% 0.45% NaCl 1,000 ML IV SCH (12:20)
[2017-01-11 16:00] VITALS: BP 146/98; PULSE 73; RESP 22; O2SAT 94
--- NOTE | 2017-01-11 16:31 | NUR ---
Social Work: Brief Note / Multidisciplinary Rounds Data: Pt is on day 4 of hospitalization, EMR reviewed, pt discussed in rounds. No anticipated d/c date at this time. Pt continues to not be appropriate for assessment at this time. [employer] will complete when appropriate. [employer] will continue to follow. Assessment: Pt who is independent at baseline, currently not capable of self care. Plan: Pt will possibly d/c to [facility] vs treatment, CDP following. [employer] will complete initial assessment when appropriate. [employer] will continue to follow. REBECCA Matson
[2017-01-11] MEDS ORDERED: NiCARdipine Inj 25 MG in Dextrose 5% 240 ML IV SCH (16:55)
--- NOTE | 2017-01-11 17:42 | NUR ---
Agitation/Hypertension Pt on ativan gtt throughout shift, titrated to RASS/CIWA scores and agitation. Pt on 4L NC RR 18-26, TELE SR 70-80s. Pt's BP trending up with diastolic BP starting to climb into the high 90s, low 100s. Notified , who ordered nicardipine gtt. Started new IV line for compatibility issues. Bed alarm on, frequent rounding and oral care continue. Pt turning himself independently in bed. Had one episode of urinary incontinence and once requested to use urinal and urinated 800ml out at once.
--- NOTE | 2017-01-11 17:45 | PCM.PNMED ---
Subjective Date of Service Jan 11, 2017 Subjective Overnight Events. No acute events overnight. Patient is resting in bed comfortably and in no acute distress, tolerating current medication regimen. Due to altered mental state and sedative medications , patient was not able to discuss current condition. Exam Vital Signs Vital Sign - Last Date Time Temp Pulse Resp B/P Pulse Ox O2 Delivery O2 Flow Rate FiO2 01/11/17 04:00 78 20 116/80 91 Nasal Cannula 3.00 01/10/17 20:00 36.7 Intake and Output 01/10/17 01/10/17 01/11/17 Cumulative From/Thru 15:00 23:00 07:00 01/06/17 20:23 - 01/11/17 06:03 Intake Total 731 ml 1155 ml 96053 ml Output Total 50 ml 400 ml 2520 ml Balance 681 ml 755 ml 8795 ml Intake Oral 3081 ml IV Total 731 ml 1155 ml 8234 ml Output Urine Total 50 ml 400 ml 2520 ml # Voids 13 # Bowel Movements 1 Exam General: Somnolent, in no acute distressed, well nourished HEENT: Normocephalic, atraumatic. External ears without defect. Pupils equal, round. Anicteric sclerae, Cardiovascular: Regular rate and rhythm with no murmurs, rubs, or gallops appreciated Pulmonary: Clear to auscultation bilaterally with no crackles, wheezes, or rhonchi. Normal respiratory effort with no use of accessory muscles. Abdomen: Bowel tones present. Soft, nontender, nondistended. Extremities: No clubbing, cyanosis, edema Skin: Normal temperature, turgor, and texture; no rash, ulcers, or subcutaneous nodules appreciated. Neurological: Cranial nerves grossly intact. Normal muscle strength, tone, and bulk. Psychiatric: Somnolent IVs and Medications Medications Reviewed: Medications were reviewed in detail Lab and Diagnostics Result Diagram: 01/11/1721901/11/17219 X-Rays, CTs and MRIs PROCEDURE: X-RAY CHEST, TWO VIEWS ([id number]) INDICATIONS: chest pain, murmur TECHNIQUE: 2 views of the chest were acquired. COMPARISON: None. FINDINGS: Surgical changes and devices: None. Lungs and pleura: No pleural effusions or pneumothorax. Lungs are clear. Mediastinum: Mediastinal contours are normal. Heart size is normal. Bones and chest wall: No suspicious bony abnormalities. Soft tissues appear unremarkable. IMPRESSION: No radiographic evidence of acute cardiopulmonary pathology. Dictated by: Igor Ojeda M.D. on 01/07/2017 at 8:35 Cardiac Echo Impressions The left ventricle is severely dilated. Left ventricular ejection fraction is estimated to be 20 +/- 5%. There is severe global hypokinesis of the left ventricle. There is severe mitral regurgitation. The right ventricular systolic pressure is estimated at 37 mmHg assuming a right atrial pressure of 15 mm Hg. Assessment & Plan Mary Lou Munroe is a 51 year old male with reported history of Coronary disease, methamphetamine abuse, heroin abuse and alcohol abuse who presents to [facility] emergency department requesting detox but was found to have elevated troponin. Alcohol Intoxication and withdrawal syndrome. Present on admission Last drink 01/06/17 morning. History of Alcohol withdrawal seizures. Patient has previously had detox years ago. During this encounter, he has been very aggressive spontaneously after a somnolent period requiring immediate valium. Valium seems to last almost 3 hours before each episode. - CIWA protocol initiated,Continue Thiamine, folate, multivitamin - decision support manager consult for placement and resources - Phenobarbital at 65 mg Q 12 H scheduled today. Consider avoiding daily Phenobarbital. - Lorazepam drip started 1800 on 01/09/17. Attempt daily weening. - As patient may also be withdrawing from opiates, Dilaudid 0.5 mg q2h prn and clonidine 0.1 mg patch - Speech evaluation when appropriate. - As patient is NPO D51/2NS 60 mL/hr started. Will be cautious as EF of only 20% . Acute Hypertensive episode, not present on admission. Active. - BP 160/110. Likely related to Agitation. - Start Nicardipine ggt and titrate to goal BP of 140/90. Systolic CHF, probably chronic, due to ischemic cardiomyopathy versus chronic cardiomyopathy - Echocardiogram EF 20% - Patient had history of MT 6 years ago. No echocardiogram to compare with. He presented with mild chest pain 2/10 and borderline troponin. Discussed with cardiology . Patient not in acute decompensation. Patient noncompliant on medications and started on aspirin, statin and beta estella yesterday.not a candidate for intervention. We will optimize CHF regimen and advise patient to see electronics teacher Dr Soler outpatient for workup of cardiomyopathy. Encouraged to quit alcohol. - Continue aspirin, statin, metoprolol. added lisinopril 10 mg daily Elevated troponin. Present on admission - EKG showed no ischemic changes. No EKG to compare with - Monitor on telemetry. - Echo as above. - Downtrending troponin. Level was borderline and unlikely to represent acute infarction - Continue Aspirin , atorvastatin and metoprolol - Prescriptions needs upon discharge for ASA, BB, ACEI and statin History of CAD - Aspirin , atorvastatin and metoprolol, ACEI started Polysubstance dependence (Heroine and Meth) Risk for endocarditis but no infectious symptoms at this time. - Continue onitor for withdrawal symptoms Nicotine dependence Cessation discussed and encouraged - Nicotine patch upon request - Acetaminophen as needed for mild pain/fever/headache - Bowel regimen as needed - Antiemetic as needed High-risk medications: IV Lorazepam. Disposition: Likely here for > 2 midnights. Dependent upon withdrawal progress. Will discharge when medically stable. Pain Evaluation: Adequate Pain Control VTE Prophylaxis: Sub-Q Heparin (Unfractionated) VTE Mechanical Devices: Intermittant Pneumatic CD Resuscitation Status: CPR: Attempt Resuscitation Attending Statement The patient was seen and examined together with Dr. Ramirez on 01/11/2017 and I agree with the history, exam and plan as outlined in the note above. . PONCHO RAMIREZ DO Jan 11, 2017 07:22 Jorden Silva MD Jan 13, 2017 07:36
--- NOTE | 2017-01-11 19:30 | DRSVH ---
PROCEDURE: X-RAY CHEST ONE VIEW, PORTABLE ([id number]) INDICATIONS: Desat, hx of CHF TECHNIQUE: One view of the chest was acquired. COMPARISON: [facility], CR, XR CHEST 2VW, 01/06/2017, 21:55. FINDINGS: Surgical changes and devices: None. Lungs and pleura: No pleural effusions or pneumothorax. Lungs are clear. Mediastinum: Mediastinal contours appear normal. Heart size is enlarged. Bones and chest wall: No suspicious bony lesions. Overlying soft tissues appear unremarkable. IMPRESSION: Cardiomegaly. No evidence of edema, nor pneumonia. Dictated by: Aj Lion M.D. on 01/11/2017 at 19:27 Approved by: Aj Lion M.D. on 01/11/2017 at 19:28
[2017-01-11 19:40] VITALS: BP 125/98; PULSE 79; RESP 18; O2SAT 99
[2017-01-12] VITALS (8 sets, daily range): BP systolic 121–152; BP diastolic 74–116; PULSE 7–83; RESP 12–20; O2SAT 97–100
[2017-01-12] MEDS: Heparin 5,000 Unit/mL Inj SUBQ SCH ×3 (01:31→15:45)
--- NOTE | 2017-01-12 01:39 | NUR ---
Agitation/Mcnamara Pt would wake up agitated screaming "I have to pee". Voided >700cc x 3 times in urinal with 3 large urine incontinence episodes. Order from MD to place mcnamara. 2400cc came out upon insertion. Pt seemingly more comfortable. Care ongoing
[2017-01-12 04:45] LABS: BASOPHILS % (AUTO) 0.4 % (0-3); EOSINOPHILS % (AUTO) 1.5 % (0-5); MONOCYTES % (AUTO) 10.4 % (4-12); NEUTROPHILS % (AUTO) 68.8 % (40-74); Platelet Count 151 bil/L (150-400)
[2017-01-12] MEDS: Dextrose 5% 0.45% NaCl 1,000 ML IV SCH ×2 (05:45→20:04)
[2017-01-12] MEDS ORDERED: Haloperidol 5 mg/mL Inj IM PRN (06:05)
[2017-01-12] MEDS: LORazepam Inj 100 MG in 0.9% Sodium Chloride 100 ML IV PRN ×2 (06:15→23:29)
[2017-01-12] MEDS: NiCARdipine Inj 25 MG in Dextrose 5% 240 ML IV SCH ×4 (06:35→20:04)
[2017-01-12] MEDS: Multivit-Miner-Folic Acid-Iron Tablet PO SCH (07:48)
[2017-01-12] MEDS: Thiamine Inj 100 MG in Dextrose 5% 50 ML IM SCH (07:48)
[2017-01-12] MEDS: MeTOProlol XL 25 mg ER24 Tablet PO SCH (07:48)
[2017-01-12] MEDS ORDERED: Sodium Chloride LOK Flush 10 mL Syringe IVFLUSH PRN ×2 (09:10)
--- NOTE | 2017-01-12 10:41 | NUR ---
NUTRITION ASSESSMENT Assess: 51 YO M admitted to CCU for alcohol/opiate withdrawal. It appears pt has been NPO X 4 days. Per notes, pt somnolent. Pt on CIWA protocol. PMHX: ETOH abuse, coronary disease, stroke, heroin/meth abuse. DIET: Heart Healthy ordered but pt NPO. Previous PO 100% X 2 meals (01/08). LABS: Ca 8.4, Alb 3.3 MEDICATIONS: Reviewed. Multivitamin. GI: 1 BM 01/08. SKIN: No issues noted. ANTHROPOMETRICS: WT: 118.2 kg, BMI 33.5 kg/m2, Admit wt: 119.36 kg ESTIMATED NEEDS: BMI Calories: 9032-7000 kcal/day (20-22 kcal/kg BW) Protein: 104-130 g/day (1.2-1.5 g/kg IBW) NUTRITION DIAGNOSIS: 1) Inadequate oral intake related to decreased ability to consume sufficient energy as evidenced by NPO status. INTERVENTION: 1) Will await timely advancement of diet, if unable to advance diet recommend nutrition support in the next 1-3 days. MONITOR/EVALUATE: PO intake, NPO status, labs, GI/nutrition status. Follow per moderate nutrition risk guidelines.
--- NOTE | 2017-01-12 11:32 | NUR ---
Social Work: Multidisciplinary Rounds Pt discussed in AM rounds today, per MD pt continues to experience intense withdrawal symptoms. Pt continues to not be appropriate for assessment at this time. PRINCIPAL EXAMINER will complete when appropriate. PRINCIPAL EXAMINER will continue to follow. REBECCA Pate
--- NOTE | 2017-01-12 13:55 | DRSVH ---
PROCEDURE: X-RAY PICC LINE PLACEMENT BY NURSE ([id number]) INDICATIONS: central access for non compatible drip COMPARISON: None. FINDINGS: PICC was placed by the intravenous therapy team from the left side. Fluoroscopic spot nohemy m demonstrates tip projected over the lower SVC. IMPRESSION: Tip of PICC projected over the lower SVC . Dictated by: Gabriel DAWSON Interpreted: Reba Chamberlain MD on 01/12/2017 at 11:50 Approved by: Reba Chamberlain M.D. on 01/12/2017 at 13:53
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
[2017-01-12] MEDS: MeTOProlol 1 mg/mL 5 mL Inj IVPUSH SCH (20:26)
--- NOTE | 2017-01-12 20:37 | PCM.PNMED ---
Subjective Date of Service Jan 12, 2017 Subjective Assessment: Patient minimally responsive this morning. Laying on his right side on examination. IV access right shoulder. Events Overnight: No acute events overnight. As per nurses patient has been in a waxing and waning combative state. ROS: Due to the patient being somnolent a review of systems was unable to be obtained. Exam Vital Signs Vital Sign - Last Date Time Temp Pulse Resp B/P Pulse Ox O2 Delivery O2 Flow Rate FiO2 01/12/17 15:51 36.7 83 18 147/96 OxyMask 2.00 01/12/17 12:00 99 Intake and Output 01/11/17 01/11/17 01/12/17 Cumulative From/Thru 15:00 23:00 07:00 01/06/17 20:23 - 01/12/17 06:11 Intake Total 1020 ml 448 ml 05241 ml Output Total 800 ml 6550 ml 9870 ml Balance 220 ml -6102 ml 2913 ml Intake Oral 50 ml 3131 ml IV Total 970 ml 448 ml 9652 ml Output Urine Total 800 ml 6550 ml 9870 ml # Voids 1 3 17 # Bowel Movements 0 1 Exam General: Obtunded, no acute distressed, well nourished HEENT: Normocephalic, atraumatic. External ears without defect. Pupils equal, round. Anicteric sclerae, Cardiovascular: Regular rate and rhythm with no murmurs, rubs, or gallops appreciated Pulmonary: Clear to auscultation bilaterally with no crackles, wheezes, or rhonchi. Normal respiratory effort with no use of accessory muscles. Abdomen: Bowel tones present. Soft, nontender, nondistended. Extremities: No clubbing, cyanosis, mild edema of the left hand. Skin: Normal temperature, turgor, and texture; no rash, ulcers, or subcutaneous nodules appreciated. Neurological: Cranial nerves grossly intact. Normal muscle strength, tone, and bulk. Psychiatric: Unable to evaluate due to obtunded status. IVs and Medications IV Fluids 102 mL thiamine 150 mL lorazepam Medications Reviewed: Medications were reviewed in detail Medications IV metoprolol Haldol Nicotine patch Lab and Diagnostics Item Value Date Time Red Blood Count 4.87 mil/mm3 01/12/17 0430 Mean Corpuscular Volume 91.0 fL 01/12/17 0430 Mean Corpuscular Hemoglobin 30.0 pg 01/12/17 0430 Mean Corpuscular Hemoglobin Concent 33.0 % 01/12/17 043 Red Cell Distribution Width 17.1 % H 01/12/17 0430 Neutrophils (%) (Auto) 68.8 % 01/12/17 0430 Lymphocytes (%) (Auto) 18.9 % 01/12/17 0430 Result Diagram: 01/12/1742901/12/[id number] X-Rays, CTs and MRIs PROCEDURE: X-RAY CHEST, TWO VIEWS ([id number]) INDICATIONS: chest pain, murmur TECHNIQUE: 2 views of the chest were acquired. COMPARISON: None. FINDINGS: Surgical changes and devices: None. Lungs and pleura: No pleural effusions or pneumothorax. Lungs are clear. Mediastinum: Mediastinal contours are normal. Heart size is normal. Bones and chest wall: No suspicious bony abnormalities. Soft tissues appear unremarkable. IMPRESSION: No radiographic evidence of acute cardiopulmonary pathology. Dictated by: Igor Ojeda M.D. on 01/07/2017 at 8:35 Cardiac Echo Impressions The left ventricle is severely dilated. Left ventricular ejection fraction is estimated to be 20 +/- 5%. There is severe global hypokinesis of the left ventricle. There is severe mitral regurgitation. The right ventricular systolic pressure is estimated at 37 mmHg assuming a right atrial pressure of 15 mm Hg. Assessment & Plan Mary Lou Munroe is a 51 year old male with reported history of Coronary disease, methamphetamine abuse, heroin abuse and alcohol abuse who presents to [facility] emergency department requesting detox but was found to have elevated troponin. Alcohol Intoxication and withdrawal syndrome. Present on admission Last drink 01/06/17 morning. History of Alcohol withdrawal seizures. Patient has previously had detox years ago. During this encounter, he has been very aggressive spontaneously after a somnolent period requiring immediate valium. Valium seems to last almost 3 hours before each episode. - CIWA protocol initiated,Continue Thiamine, folate, multivitamin - sugar cane farm manager consult for placement and resources - Phenobarbital at 65 mg Q 12 H scheduled today. Consider avoiding daily Phenobarbital. - Lorazepam drip started 1800 on 01/09/17. Attempt daily weening. - As patient may also be withdrawing from opiates, Dilaudid 0.5 mg q2h prn and clonidine 0.1 mg patch - Speech evaluation when appropriate. - Patient is NPO D51/2NS 60 mL/hr HELD due to possible fluid overload. Will be cautious as EF of only 20%. Increase urine output, not present on admission. Active. - Patient urinated 5L of fluid yesterday and 6 L of fluid today. - Case was discussed with Nephrology and will see the patient tomorrow if symptoms do not resolve. - Serum osmolality and urine osmolality will be obtained along with a BNP and both be followed up tomorrow. Acute Hypertensive urgency, not present on admission. Active. - BP 150/110. Likely related to Agitation. - Started metoprolol 5 mg IV every 12 hours Systolic CHF, probably chronic, due to ischemic cardiomyopathy versus chronic cardiomyopathy - Echocardiogram EF 20% - Patient had history of OR 6 years ago. No echocardiogram to compare with. He presented with mild chest pain 2/10 and borderline troponin. Discussed with cardiology . Patient not in acute decompensation. Patient noncompliant on medications and started on aspirin, statin and beta estella yesterday.not a candidate for intervention. We will optimize CHF regimen and advise patient to see masonry installer Dr Soler outpatient for workup of cardiomyopathy. - Encouraged to quit alcohol. - Hold aspirin, statin, metoprolol. And lisinopril Elevated troponin. Present on admission - EKG showed no ischemic changes. No EKG to compare with - Monitor on telemetry. - Echo as above. EF 20% with severely dilated left ventricle - Downtrending troponin. Level was borderline and unlikely to represent acute infarction - Continue Aspirin , atorvastatin and metoprolol - Prescriptions needs upon discharge for ASA, BB, ACEI and statin History of CAD - Aspirin , atorvastatin and metoprolol, ACEI started Polysubstance dependence (Heroine and Meth) Risk for endocarditis but no infectious symptoms at this time. - Continue monitor for withdrawal symptoms Nicotine dependence Cessation discussed and encouraged - Nicotine patch upon request - Acetaminophen as needed for mild pain/fever/headache - Bowel regimen as needed - Antiemetic as needed High-risk medications: IV Lorazepam. Disposition: Patient is progressing but is still somnolent most likely secondary to the Ativan drip. Patient's discharge is dependent upon withdrawal progress. Will discharge when medically stable. Pain Evaluation: Adequate Pain Control VTE Prophylaxis: Sub-Q Heparin (Unfractionated) VTE Mechanical Devices: Intermittant Pneumatic CD Resuscitation Status: CPR: Attempt Resuscitation Attending Statement The patient was seen and examined together with Dr. Ferguson on 01/14/2017 and I have added additional information to the note above. Zion Worrell DO Jan 12, 2017 20:37 Nury Peña DO Jan 14, 2017 13:44
[2017-01-13] VITALS (7 sets, daily range): BP systolic 120–144; BP diastolic 68–93; PULSE 67–78; RESP 13–15; O2SAT 95–99
[2017-01-13 00:27] LABS: APPEARANCE,URINE CLEAR (CLEAR,HAZY); COLOR,URINE STRAW (YELLOW); OCCULT BLOOD,URINE MODERATE (NEGATIVE); UROBILINOGEN,URINE NORMAL (NORMAL)
[2017-01-13] MEDS: Heparin 5,000 Unit/mL Inj SUBQ SCH ×3 (00:29→16:27)
[2017-01-13] MEDS: NiCARdipine Inj 25 MG in Dextrose 5% 240 ML IV SCH ×4 (00:52→22:35)
[2017-01-13 04:58] LABS: BASOPHILS % (AUTO) 0.6 % (0-3); EOSINOPHILS % (AUTO) 1.4 % (0-5); MONOCYTES % (AUTO) 9.1 % (4-12); Mean Corpuscular Hemoglobin 30.1 pg (27.0-35.0); Mean Corpuscular Volume 89.1 fL (81-100); NEUTROPHILS % (AUTO) 71.3 % (40-74); Platelet Count 158 bil/L (150-400)
--- NOTE | 2017-01-13 05:00 | NUR ---
Juan/Agitation/Diet Juan output of 5550 so far in shift. Pt continues to void large amounts of urine without any maintenance fluid going or diuretics. Labs unremarkable so far. UA sent and is indicated for culture that is pending. Pt remained mostly calm throughout shift with brief agitated episodes d/t NPO factor and restraints. Once pt was polite and calm, restraints DC'd and pt given a few ice chips which he tolerated well. Remains NPO status. He is still fairly drowsy. Will address diet next shift. Care ongoing
[2017-01-13] MEDS: Dextrose 5% 0.45% NaCl 1,000 ML IV SCH (06:06)
[2017-01-13] MEDS: Multivit-Miner-Folic Acid-Iron Tablet PO SCH (08:14)
[2017-01-13] MEDS: MeTOProlol 1 mg/mL 5 mL Inj IVPUSH SCH ×2 (08:14→20:25)
[2017-01-13] MEDS: Thiamine Inj 100 MG in Dextrose 5% 50 ML IM SCH (08:14)
--- NOTE | 2017-01-13 09:40 | PCM.PNMED ---
Subjective Date of Service Jan 13, 2017 Subjective Assessment: Patient somnolent in bed, however moving arms and legs to attain a more comfortable position. Patient on medication responded to questions appropriately, however the majority of our communication was grunts and groans. Events Overnight: No acute events overnight. Nurses state the patient has been significantly less combative compared to previous nights. 6 L of fluid per Juan overnight. ROS: Due to the patient being somnolent a review of systems was unable to be obtained. Exam Vital Signs Vital Sign - Last Date Time Temp Pulse Resp B/P Pulse Ox O2 Delivery O2 Flow Rate FiO2 01/13/17 08:00 35.9 72 15 138/87 99 OxyMask 1.00 Intake and Output 01/12/17 01/12/17 01/13/17 Cumulative From/Thru 15:00 23:00 07:00 01/06/17 20:23 - 01/13/17 05:19 Intake Total 391 ml 586 ml 39030 ml Output Total 6800 ml 5550 ml 84248 ml Balance -6409 ml -4964 ml -8460 ml Intake Oral 0 ml 3131 ml IV Total 391 ml 586 ml 62468 ml Output Urine Total 6800 ml 5550 ml 37371 ml # Voids 17 # Bowel Movements 0 1 Exam General: Somnolent No acute distress, well-developed, well-nourished HEENT: Normocephalic, atraumatic. External ears without defect. Pupils equal, round, and reactive to light and accommodation. Anicteric sclerae, moist conjunctivae. Cardiovascular: Regular rate and rhythm with no murmurs, rubs, or gallops appreciated Pulmonary: Clear to auscultation bilaterally with no crackles, wheezes, or rhonchi. Normal respiratory effort with no use of accessory muscles. Abdomen: Bowel tones present. Soft, nontender, nondistended. Extremities: No clubbing, cyanosis, edema Skin: Normal temperature, turgor, and texture; no rash, ulcers, or subcutaneous nodules appreciated. Neurological: Cranial nerves grossly intact. Reflexes, coordination, and sensory function within normal limits. Normal muscle strength, tone, and bulk. Psychiatric: Unable to be assessed due to somnolent status. IVs and Medications IV Fluids 1 L dextrose/sodium chloride 102 mL thiamine 100 mL lorazepam 250 mL Nicardipine Medications Reviewed: Medications were reviewed in detail Medications Nicotine patch Metoprolol 5 mg IV every 12 Lab and Diagnostics Item Value Date Time Osmolality 301 H 01/12/171924 Estimat Glomerular Filtration Rate 134 mL/min 01/12/171924 Total Bilirubin 1.6 mg/dL H 01/13/17 0440 Aspartate Amino Transf (AST/SGOT) 29 U/L 01/13/17 0440 Alanine Aminotransferase (ALT/SGPT) 24 U/L 01/13/17 0440 Alkaline Phosphatase 102 U/L 01/13/17 0440 Total Protein 6.7 g/dL 01/13/17 0440 Albumin 3.3 g/dL L 01/13/17 0440 Result Diagram: 01/13/17 04401/13/17439 X-Rays, CTs and MRIs PROCEDURE: X-RAY CHEST, TWO VIEWS ([id number]) INDICATIONS: chest pain, murmur TECHNIQUE: 2 views of the chest were acquired. COMPARISON: None. FINDINGS: Surgical changes and devices: None. Lungs and pleura: No pleural effusions or pneumothorax. Lungs are clear. Mediastinum: Mediastinal contours are normal. Heart size is normal. Bones and chest wall: No suspicious bony abnormalities. Soft tissues appear unremarkable. IMPRESSION: No radiographic evidence of acute cardiopulmonary pathology. Dictated by: Igor Ojeda M.D. on 01/07/2017 at 8:35 Cardiac Echo Impressions The left ventricle is severely dilated. Left ventricular ejection fraction is estimated to be 20 +/- 5%. There is severe global hypokinesis of the left ventricle. There is severe mitral regurgitation. The right ventricular systolic pressure is estimated at 37 mmHg assuming a right atrial pressure of 15 mm Hg. Assessment & Plan Mary Lou Munroe is a 51 year old male with reported history of Coronary disease, methamphetamine abuse, heroin abuse and alcohol abuse who presents to [facility] emergency department requesting detox but was found to have elevated troponin. However, acute coronary pathology has been ruled out at this time and it is likely that this patient was undergoing a difficult withdrawal from alcohol and this is what precipitated his elevated troponins. Alcohol Intoxication and withdrawal syndrome. Present on admission Last drink 01/06/17 morning. History of Alcohol withdrawal seizures. Patient has previously had detox years ago. During this encounter, he has been very aggressive spontaneously after a somnolent period requiring immediate valium. Valium seems to last almost 3 hours before each episode. - CIWA protocol initiated,Continue Thiamine, folate, multivitamin - social service manager consult for placement and resources - Phenobarbital at 65 mg Q 12 H scheduled today. Consider avoiding daily Phenobarbital. - Lorazepam drip started 1800 on 01/09/17. Attempt daily weening. Currently at 4 mL/hr - As patient may also be withdrawing from opiates, Dilaudid 0.5 mg q2h prn and clonidine 0.1 mg patch - Patient is NPO due to somnolent status D51/2NS 60 mL/hr. Will be cautious as EF of only 20%. - Speech evaluation when appropriate. Oral meds held until that time. Increase urine output, not present on admission. Active. - For the past 48 hours the patient urinated 19 L of fluid - Serum osmolality and urine osmolality, and BMP obtained last night and were within normal limits. - This likely represents fluid shift however no concern for acute process at this time. - Dr. Spear from Nephrology is aware of the patient. Acute Hypertensive episode, not present on admission. Active. - BP 150/110. Likely related to Agitation. Current BP 144/93 - Continue nicardipine drip as needed for BP control -Continue metoprolol 5 mg IV every 12 hours Systolic CHF, probably chronic, due to ischemic cardiomyopathy versus chronic cardiomyopathy - Echocardiogram EF 20% - Patient had history of PR 6 years ago. No echocardiogram to compare with. He presented with mild chest pain 2/10 and borderline troponin. Discussed with cardiology . Patient not in acute decompensation. Patient noncompliant on medications and started on aspirin, statin and beta estella yesterday.not a candidate for intervention. We will optimize CHF regimen and advise patient to see meat hanger Dr Soler outpatient for workup of cardiomyopathy. Encouraged to quit alcohol. - Hold aspirin, statin, metoprolol, and lisinopril until patient is awake to handle by mouth medications. Elevated troponin of uncertain significance, Present on admission. - EKG showed no ischemic changes. No EKG to compare with - Monitor on telemetry. - Echo as above. EF 20% with severely dilated left ventricle - Downtrending troponin. Level was borderline and unlikely to represent acute infarction - Continue Aspirin , atorvastatin and metoprolol - Prescriptions needs upon discharge for ASA, BB, ACEI and statin History of CAD - Aspirin , atorvastatin and metoprolol, ACEI started Polysubstance dependence (Heroine and Meth) Risk for endocarditis but no infectious symptoms at this time. - Continue monitor for withdrawal symptoms Nicotine dependence Cessation discussed and encouraged - Nicotine patch daily - Acetaminophen as needed for mild pain/fever/headache - Bowel regimen as needed - Antiemetic as needed High-risk medications: IV Lorazepam. Disposition: Patient is still in active withdrawal but does seem to be improving daily. Will discharge when medically stable. Pain Evaluation: Adequate Pain Control VTE Prophylaxis: Sub-Q Heparin (Unfractionated) VTE Mechanical Devices: Intermittant Pneumatic CD Resuscitation Status: CPR: Attempt Resuscitation Attending Statement The patient was seen and examined together with Dr. Worrell on 01/13/2017 and I have added additional information to the note above. Zion Worrell DO Jan 13, 2017 09:40 Nury Peña DO Jan 17, 2017 13:26
--- NOTE | 2017-01-13 10:41 | NUR ---
NUTRITION FOLLOW-UP: Assess: 51 YO M admitted to CCU for alcohol/opiate withdrawal. Pt has been NPO x5 days. Pt on CIWA protocol. ST eval has not been ordered yet as he is too somnolent. Pt's wt has decreased ~16kg since admit. PMHX: ETOH abuse, coronary disease, stroke, heroin/meth abuse. DIET: NPO. Previous PO 100% X 2 meals (01/08). LABS: Ca 8.4, Alb 3.3 MEDICATIONS: Reviewed. Multivitamin. GI: 1 BM 01/08. SKIN: No issues noted. ANTHROPOMETRICS: WT: 103.8 kg, BMI 29.4 kg/m2, Admit wt: 119.36 kg, IBW: 86.3kg ESTIMATED NEEDS: Calories: 2285-2595kcal/day (22-25kcal/kg) Protein: 105-125g/day (1.0-1.2g/kg) NUTRITION DIAGNOSIS: 1) Inadequate oral intake related to decreased ability to consume sufficient energy as evidenced by NPO status.--PERSISTS INTERVENTION: 1) Recommend ST eval be ordered 2) If per continues to be NPO over next 24 hrs, recommend TF be started. Recommend Jevity 1.5 start @10ml/hr. If tolerated, advance by 10ml q 6 hrs until reach goal rate of 75ml/hr to provide 2475kcal and 105g/day (100% estimated needs) MONITOR/EVALUATE: NPO status, TF?, labs, GI/nutrition status. Follow per high nutrition risk guidelines.
--- NOTE | 2017-01-13 14:04 | NUR ---
Social Work: Attempted Initial Assessment/Multidisciplinary Rounds Pt discussed in AM rounds today, per MD pt continues to experience withdrawal symptoms and is currently on restrains. Pt was combative with RN. This is not pt baseline mentation. SW attempted to meet with pt at bedside to see if his mentation improved. However, per RN, pt continues to not be appropriate for assessment at this time. DIE POLISHER will complete when appropriate. DIE POLISHER will continue to follow. REBECCA Pate
--- NOTE | 2017-01-13 16:33 | NUR ---
Has remained calm today, no violent behavior observed. Ativan titrated down due to somnolence. Restraints are off at this time. Frequent independent repositioning, moving all extremities with poor coordination. Continued infrequent, congested cough. Desats intermittently when asleep, resolved with 02 at 2L/NC. BP variable, remains on nicardipine infusion for control. Sinus rhythm on tele, no ectopy noted. Afebrile. Brisk UOP via mcnamara, no stool. CMP/labs this afternoon, results noted. No visitors or inquiries.
[2017-01-14] VITALS (8 sets, daily range): BP systolic 115–149; BP diastolic 71–102; PULSE 76–87; RESP 7–20; O2SAT 92–100
[2017-01-14] MEDS: Heparin 5,000 Unit/mL Inj SUBQ SCH ×3 (00:08→18:24)
[2017-01-14] MEDS: NiCARdipine Inj 25 MG in Dextrose 5% 240 ML IV SCH ×5 (00:08→21:16)
[2017-01-14] MEDS: Dextrose 5% 0.45% NaCl 1,000 ML IV SCH ×2 (00:15→18:25)
--- NOTE | 2017-01-14 05:45 | NUR ---
HP/CIWA/Resp/GI Patient titrated off Nicardipine gtt this shift, BP 122/74 at 0530, CIWA 4-6 this AM and Ativan gtt titrated off, resting in bed and sleeping at this time, no agitation or anxiety noted, sleepy but awakens easily, off O2 and tolerating room air well with sats in the mid 90's, NPO and patient requesting to eat, informed that speech therapy will need to perform a swallow eval, patient agreed to wait till this morning and went back to sleep. Uneventful shift, will continue to monitor, no distress noted. Addendum: 01/14/17 at 0577 by PELON HUERTA RN Amended: Links added.
[2017-01-14] MEDS: MeTOProlol 1 mg/mL 5 mL Inj IVPUSH SCH (08:21)
[2017-01-14] MEDS: Multivit-Miner-Folic Acid-Iron Tablet PO SCH (08:22)
[2017-01-14] MEDS: Thiamine Inj 100 MG in Dextrose 5% 50 ML IM SCH (10:38)
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
--- NOTE | 2017-01-14 13:11 | NUR ---
NUTRITION FOLLOW-UP: Assess: 51 YO M admitted to CCU for alcohol/opiate withdrawal. Pt has been NPO x6 days. Pt on CIWA protocol. ST eval was ordered this am and pt was able to have his diet advanced to dysphagia mechanical with thin liquids. Pt's wt has decreased 22kg since admit. PMHX: ETOH abuse, coronary disease, stroke, heroin/meth abuse. 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 GI: 1 BM 01/08. SKIN: No issues noted. ANTHROPOMETRICS: WT: 97.7 kg, BMI 27.7 kg/m2, Admit wt: 119.36 kg, IBW: 86.3kg ESTIMATED NEEDS: Calories: 2445-2930kcal/day (25-30kcal/kg) Protein: 100-120g/day (1.0-1.2g/kg) NUTRITION DIAGNOSIS: 1) Inadequate oral intake related to decreased ability to consume sufficient energy as evidenced by NPO status.--IMPROVING 2) Severe pro/kcal malnutrition in the context of acute illness related to AMS as evidence by PO intake of <50% of estimated energy requirements for >5days and 17% wt loss x1 week. INTERVENTION: 1) Continue diet per ST. Will monitor for PO intake/tolerance. 2) Will add Ensure on L tray and Magic Cup on D tray to help increase kcal/pro intake MONITOR/EVALUATE: PO, ST,wt, labs, GI/nutrition status. Follow per high nutrition risk guidelines.
--- NOTE | 2017-01-14 17:24 | NUR ---
Mentation.. Has been increasingly more awake and conversant and speech is now more understandable where before it was quite mumbled. CIWA scores are declining and pt has been cooperative with all care given. Is extremely weak and unable to director of sports performance strongly. Was able to pass swallow eval but has been unable to hold the utensil to feed himself. MD request made to have PT order for eval and treat. Was visited by a close friend who has contact with the pt's mother and sisters who live in [facility]. He will update the family and permission given from the pt to do so.
[2017-01-15] VITALS (9 sets, daily range): BP systolic 128–141; BP diastolic 82–99; PULSE 65–84; RESP 9–16; O2SAT 94–98
[2017-01-15] MEDS: NiCARdipine Inj 25 MG in Dextrose 5% 240 ML IV SCH ×2 (00:51→08:07)
[2017-01-15] MEDS: Heparin 5,000 Unit/mL Inj SUBQ SCH ×3 (00:59→16:11)
[2017-01-15 04:50] LABS: BASOPHILS % (AUTO) 1.3 % (0-3); EOSINOPHILS % (AUTO) 2.6 % (0-5); MONOCYTES % (AUTO) 14.8 % (4-12); Mean Corpuscular Volume 89.5 fL (81-100); NEUTROPHILS % (AUTO) 48.5 % (40-74); Platelet Count 170 bil/L (150-400)
--- NOTE | 2017-01-15 07:17 | NUR ---
Mentation/Diet Awake most of shift, oriented and cooperative with care. Periods of agitation r/t extremity of weakness and not being able to meet on own needs. Unable to auxiliary plant operator and reach to mouth, requiring 1:1 assist with both eating and drinking. Increase in appetite. CIWA remains < 5, denies pain, no SOB appreciated. Infrequent moist cough, Spo2 96% on RA. Tele: SR in 70s.
[2017-01-15] MEDS: Thiamine Inj 100 MG in Dextrose 5% 50 ML IM SCH (08:06)
--- NOTE | 2017-01-15 10:00 | NUR ---
Evaluation completed. Please go to "Notes" then click on "Assessments and Notes" (bottom left corner of screen). Then select appropriate discipline tab on top of screen.
[2017-01-15] MEDS: Multivit-Miner-Folic Acid-Iron Tablet PO SCH (10:27)
--- NOTE | 2017-01-15 11:40 | NUR ---
Social Work: Continued discharge planning/Multidisciplinary Rounds D: Pt discussed in am rounds. Pt is not yet appropriate for BELT PICKER visit for dcp or CD assessment. Pt is improving mentation-mcdaniel. EMR reviewed; pt has been evaluated by PT with recommendation for SNF. Pt ambulated 20 feet. Pt's substance use history and [employer] insurance present as possible barriers for SNF discharge. Case management will continue to follow and discuss pt's possible d/c needs with MD in morning rounds. A: Pt who was homeless prior to admission with substance use disorder. Pt signed JAIRON for bedside CDP assessment but is not medically stable to participate in assessment. P: Evolving; BELT PICKER to continue to follow pt's clinical course closely and discuss possible discharge needs with MD in am rounds. REBECCA Velasquez
--- NOTE | 2017-01-15 15:22 | NUR ---
spiritual care: following pt tearful, emotive. nurse reassuring about his medical progress, pt seemed to respond positively to reiteration and evidences of his progress. continuing to follow
[2017-01-15] MEDS: Dextrose 5% 0.45% NaCl 1,000 ML IV SCH (16:10)
--- NOTE | 2017-01-15 19:23 | NUR ---
Mentation No reports of chest pain/pressure/discomfort. Tele SR 70s-80s with occasional PAC/PVC. 5 beats of VTACH at approx 0900 this AM, asymptomatic. No reports of SOB/dizziness. SPO2 on RA mid 90s. No reports of nausea, no vomiting, denies abdominal pain. Dysph. mechanical diet, good appetite. Juan patent draining light katelyn urine to gravity. Very drowsy, takes multiple times of touching shoulder/voice to wakepatient who will fall back asleep, has moments of increased LOC. Whenawake, he is oriented x3. Becomes tearful at times and expresses frustration with his severe weakness. Had one episode today of requiring a sternal rub, could not lift arms and would not swallow medication when he had done so successfully all shift. MD consulted, patient had returned to normal shortly thereafter.
--- NOTE | 2017-01-15 19:31 | PCM.PNMED ---
Subjective Date of Service Jan 15, 2017 Subjective Assessment: Patient is awake, although remains somewhat somnolent, able to tolerate food by mouth. Events Overnight: No acute events overnight. ROS: Denies fever/chills, nausea/vomiting, headache, weakness, abdominal pain, chest pain, shortness of breath. Exam Vital Signs Vital Sign - Last Date Time Temp Pulse Resp B/P Pulse Ox O2 Delivery O2 Flow Rate FiO2 01/15/17 16:22 36.7 65 16 131/91 97 Room Air 01/13/17 16:00 2.00 Intake and Output 01/14/17 01/14/17 01/15/17 Cumulative From/Thru 15:00 23:00 07:00 01/06/17 20:23 - 01/15/17 05:13 Intake Total 2408 ml 472 ml 83824 ml Output Total 750 ml 600 ml 55830 ml Balance 1658 ml -128 ml -9686 ml Intake Oral 960 ml 472 ml 4563 ml IV Total 1448 ml 32824 ml Output Urine Total 750 ml 600 ml 40777 ml # Voids 17 # Bowel Movements 0 1 Exam General: No acute distress, well-developed, well-nourished HEENT: Normocephalic, atraumatic. External ears without defect. Pupils equal, round, and reactive to light and accommodation. Anicteric sclerae, moist conjunctivae. Cardiovascular: Regular rate and rhythm with no murmurs, rubs, or gallops appreciated Pulmonary: Clear to auscultation bilaterally with no crackles, wheezes, or rhonchi. Normal respiratory effort with no use of accessory muscles. Abdomen: Bowel tones present. Soft, nontender, nondistended. Extremities: No clubbing, cyanosis, trace edema in the lower extremities bilaterally Skin: Normal temperature, turgor, and texture; no rash, ulcers, or subcutaneous nodules appreciated. Neurological: Cranial nerves grossly intact. Reflexes, coordination, and sensory function within normal limits. Psychiatric: Awake, though somewhat somnolent, oriented to person, place, and time IVs and Medications IV Fluids 1 L dextrose/sodium chloride Medications Reviewed: Medications were reviewed in detail Medications No high risk medications given today Lab and Diagnostics Result Diagram: 01/15/17 0430 01/15/17 043 Microbiology 01/12 urine culture no growth X-Rays, CTs and MRIs PROCEDURE: X-RAY CHEST, TWO VIEWS ([id number]) INDICATIONS: chest pain, murmur TECHNIQUE: 2 views of the chest were acquired. COMPARISON: None. FINDINGS: Surgical changes and devices: None. Lungs and pleura: No pleural effusions or pneumothorax. Lungs are clear. Mediastinum: Mediastinal contours are normal. Heart size is normal. Bones and chest wall: No suspicious bony abnormalities. Soft tissues appear unremarkable. IMPRESSION: No radiographic evidence of acute cardiopulmonary pathology. Dictated by: Igor Ojeda M.D. on 01/07/2017 at 8:35 Cardiac Echo Impressions The left ventricle is severely dilated. Left ventricular ejection fraction is estimated to be 20 +/- 5%. There is severe global hypokinesis of the left ventricle. There is severe mitral regurgitation. The right ventricular systolic pressure is estimated at 37 mmHg assuming a right atrial pressure of 15 mm Hg. Assessment & Plan Mary Lou Munroe is a 51 year old male with reported history of Coronary disease, methamphetamine abuse, heroin abuse and alcohol abuse who presents to [facility] emergency department requesting detox but was found to have elevated troponin. Alcohol Intoxication and withdrawal syndrome. Present on admission Last drink 01/06/17 morning. History of Alcohol withdrawal seizures. Patient has previously had detox years ago. During this encounter, he has been very aggressive spontaneously after a somnolent period requiring immediate valium. Valium seems to last almost 3 hours before each episode. - CIWA protocol initiated,Continue Thiamine, folate, multivitamin - food concession manager consult for placement and resources - Lorazepam drip started 1800 on 01/09/17. DC'd on 01/14 - As patient may also be withdrawing from opiates, Dilaudid 0.5 mg q2h prn and clonidine 0.1 mg patch - Patient is awake and tolerating oral intake. Increase urine output, not present on admission. Resolved - On 01/12 and 01/13 the patient urinated a total of 19 L of fluid, starting 01/14 patient's fluid output decreased to normal levels. - Serum osmolality and urine osmolality, and BMP obtained on the night of 01/13 and were within normal limits. - This likely represents fluid shift, no concern for acute process at this time. - Dr. Spear from Nephrology is aware of the patient. Acute Hypertensive urgency, not present on admission. Active. - BP initially 150/110. Likely related to Agitation. - Today blood pressures remain within normal limits without use of pressors. - Start Metoprolol 25 mg PO - Continue to monitor Systolic CHF, probably chronic, due to ischemic cardiomyopathy versus chronic cardiomyopathy Active - Echocardiogram EF 20% - Patient had history of [place] 6 years ago. No echocardiogram to compare with. He presented with mild chest pain 2/10 and borderline troponin. Discussed with cardiology . Patient not in acute decompensation. Patient noncompliant on medications and started on aspirin, statin and beta estella. Not a candidate for intervention. We will optimize CHF regimen and advise patient to see college scouting coordinator Dr Soler outpatient for workup of cardiomyopathy. - Encouraged to quit alcohol. -Aspirin, oral metoprolol and lisinopril re-initiated as patient is now tolerating oral meds. Elevated troponin. Present on admission resolving - EKG showed no ischemic changes. No EKG to compare with - Monitor on telemetry. - Echo as above. EF 20% with severely dilated left ventricle - Downtrending troponin. Level was borderline and unlikely to represent acute infarction - Continue Aspirin, and metoprolol - Prescriptions needs upon discharge for ASA, BB, ACEI and statin History of CAD - Continue Aspirin and metoprolol, lisinopril Polysubstance dependence (Heroine and Meth) Risk for endocarditis but no infectious symptoms at this time. - Continue monitor for withdrawal symptoms - Case management to discuss chemical dependency programs once patient is more alert Nicotine dependence Cessation discussed and encouraged - Nicotine patch upon request - Acetaminophen as needed for mild pain/fever/headache - Bowel regimen as needed - Antiemetic as needed Disposition: Patient medically stable at this point but still remains somewhat confused as the effects of the Ativan drip are wearing off. Discharge based on progression of physical therapy. Social work consulted and [facility] will [facility]. This will be difficult considering his homeless status as well as recent drug use. VTE Prophylaxis: Sub-Q Heparin (Unfractionated) VTE Mechanical Devices: Intermittant Pneumatic CD Resuscitation Status: CPR: Attempt Resuscitation Attending Statement The patient was seen and examined together with Dr. Worrell on 01/15/17 and I have added additional information to the note above. Zion Worrell DO Jan 15, 2017 19:31 Nury Peña DO Jan 15, 2017 20:24
[2017-01-16] VITALS (7 sets, daily range): BP systolic 116–131; BP diastolic 67–87; PULSE 76–85; RESP 16–24; O2SAT 94–97
[2017-01-16] MEDS: Heparin 5,000 Unit/mL Inj SUBQ SCH ×3 (00:34→17:06)
--- NOTE | 2017-01-16 04:28 | NUR ---
Fall At 0428 pt was found on his knees on the R side of the bed with his head touching the floor. Pt transferred back to bed by RNs. MD MANSI notified and CT requested. Addendum: 01/16/17 at 0647 by FARHAD JONES RN Preliminary CT indicates soft tissue injury, no evidence of acute cranial injury. Bottom bed rails and one top rail up. Bed alarm on. Instructed pt on safe positioning while in bed and importance of asking staff for assistance. Hourly rounding continues. CIWAs 8 or less this shift. APAP given x1 for generalized discomfort with effective results. Juan in place draining large amounts of clear yellow urine. Miralax and senna given with no result. Passing flatus. Care continues.
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
[2017-01-16] MEDS: Multivit-Miner-Folic Acid-Iron Tablet PO SCH (09:41)
--- NOTE | 2017-01-16 10:12 | NUR ---
NUTRITION FOLLOW-UP: Assess: 51 YO M admitted to CCU for alcohol/opiate withdrawal. Diet was able to be advanced to Dysphagia Mechanical on 01/14. ST continues to follow. Pt has been tolerating PO well at 100% of meals. Pt has not had a BM since 01/08, but is receiving bowel meds. Wt is slowly starting to trend back up. PMHX: ETOH abuse, coronary disease, stroke, heroin/meth abuse. DIET: Dysphagia Mechanical, thin liquids, PO 100% x2 days LABS: (01/15) Glu 111, Alb 3.0 MEDICATIONS: Reviewed. senna, miralax GI: 1 BM 01/08. SKIN: No issues noted. ANTHROPOMETRICS: WT: 103.5 kg, BMI 29.3 kg/m2, Admit wt: 119.36 kg, IBW: 86.3kg ESTIMATED NEEDS: Calories: 2445-2930kcal/day (25-30kcal/kg) Protein: 100-120g/day (1.0-1.2g/kg) NUTRITION DIAGNOSIS: 1) Inadequate oral intake related to decreased ability to consume sufficient energy as evidenced by NPO status.--IMPROVING 2) Severe pro/kcal malnutrition in the context of acute illness related to AMS as evidence by PO intake of <50% of estimated energy requirements for >5days and 17% wt loss x1 week. --IMPROVING INTERVENTION: 1) Continue diet per ST. 2) Will continue to send Ensure on L tray and Magic Cup on D tray to help increase kcal/pro intake MONITOR/EVALUATE: PO, ST, wt, BM, labs, GI/nutrition status. Follow per moderate nutrition risk guidelines.
[2017-01-16 11:33] LABS: BASOPHILS % (AUTO) 0.7 % (0-3); EOSINOPHILS % (AUTO) 3.5 % (0-5); MONOCYTES % (AUTO) 11.8 % (4-12); Mean Corpuscular Hemoglobin 30.2 pg (27.0-35.0); Mean Corpuscular Volume 89.7 fL (81-100); NEUTROPHILS % (AUTO) 55.8 % (40-74); Platelet Count 156 bil/L (150-400)
--- NOTE | 2017-01-16 11:37 | NUR ---
Gave access and faxed facesheet to [facility],JOSE MANUEL , [facility],Arabella. Also faxed referral to [facility] per REBECCA and order. Addendum: 01/16/17 at 1553 by DHIRAJ HERNANDEZ CM [facility] and [facility] are unable to accept patient Updated WASTE [employer]IMINATION
--- NOTE | 2017-01-16 14:02 | NUR ---
Social Work: Continued Discharge Planning/Multidisciplinary Rounds D: Pt discussed in multidisciplinary Rounds. Pt is not yet medically cleared for social work assessment. TYPEWRITER ASSEMBLY AND PARTS INSPECTOR explained the barriers to SNF discharge to team in am rounds. Ship Worker has placed a mass referral to local facilities however pt has already been declined by [facility] and [facility]. TYPEWRITER ASSEMBLY AND PARTS INSPECTOR has requested an order for a [facility] Swing bed referral. MD agrees to pursue this avenue for discharge planning and has placed order. ancillary specialist will place this referral. TYPEWRITER ASSEMBLY AND PARTS INSPECTOR spoke with CDP, Puja Mckay, from [facility]. Upon admission, pt signed JAIRON to complete chemical dependency assessment for inpatient treatment. This has not yet been completed due to pt's severe withdrawals. Puja is still tracking the patient and will see him when he is appropriate for assessment. She is attempting to place the patient at [facility] ([facility]) when he is able to manage his own ADLs and complete his own self care. A: Pt who is currently homeless with polysubstance use history P: Anticipate pt will likely complete rehab during hospitalization unless accepted for skilled rehab or at a Swing Bed at [facility]; Pt may be able to directly transfer to inpatient treatment at [facility] if pt is willing to continue to participate with CDP. REBECCA Velasquez
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
--- NOTE | 2017-01-16 19:21 | NUR ---
Activity/CIWA/Juan Patient a/o x 3, c/o headache and hallucinations (im seeing spiders all over room). CIWA 6 and 3. Patient oob to chair for all meals and amb with walker and one person assist. Patient showered this afternoon with mod assist. Beccaria alarm in place as patient remains impulsive and doesnt want to bother staff for help. Juan discontinued @ 1100 and patient voiding per urinal. Patient had large BM this afternoon. Diet advanced to general patient eating well. VSS, tele SR.
[2017-01-17] MEDS: Heparin 5,000 Unit/mL Inj SUBQ SCH (00:51)
[2017-01-17 03:45] VITALS: BP 146/91; PULSE 89; RESP 20; O2SAT 100
[2017-01-17 05:42] VITALS: PULSE 90
--- NOTE | 2017-01-17 06:14 | PCM.PNMED ---
Subjective Date of Service Jan 17, 2017 Subjective Around 0520 I was paged by the nurse taking care of Mr. Munroe that he wanted to leave AMA to smoke a cigarette. I went down and spoke to the patient and explained the risks of leaving at this point in time including alcohol and benzodiazapene withdrawal symptoms including seizures. I also offered nicotine replacements including lozenges and a patch and asked him if he understood the severity of leaving. He responded with "I could , but I need a cigarette, I' m an addict." He signed the AMA form and subsequently left. Exam Vital Signs Vital Sign - Last Date Time Temp Pulse Resp B/P Pulse Ox O2 Delivery O2 Flow Rate FiO2 01/17/17 05:42 90 01/17/17 03:45 36.4 20 146/91 100 Room Air 01/13/17 16:00 2.00 Intake and Output 01/16/17 01/16/17 01/17/17 Cumulative From/Thru 15:00 23:00 07:00 01/06/17 20:23 - 01/17/17 05:30 Intake Total 2028 ml 944 ml 74506 ml Output Total 2200 ml 2000 ml 50833 ml Balance -172 ml -1056 ml -43956 ml Intake Oral 1763 ml 944 ml 67143 ml IV Total 265 ml 99340 ml Output Urine Total 2200 ml 2000 ml 68138 ml # Voids 17 # Bowel Movements 1 2 Lab and Diagnostics Result Diagram: 01/16/17 1115 01/16/17 1115 Assessment & Plan Attending Statement The patient was seen and examined together with Dr. Morrissey on 01/17 and I agree with the history, exam and plan as outlined in the note above. Dionicio Morrissey DO Jan 17, 2017 06:14 Dionicio Perez MD Jan 18, 2017 20:23
--- NOTE | 2017-01-17 06:17 | NUR ---
Agitation/AMA At start of shift pt very pleasant and compliant w/ care, appeared at ease while family visiting. Later in night pt voiced need for cigarette and became somewhat agitated, very restless and c/o severe headache. CIWA 11 at the time and pt given Tylenol and Valium. paged and stated to continue w/ CIWA protocol to manage symptoms. Pt given another dose of Valium and appeared to sleep for a few hours with reassessments. When awake pt was coloring and then began to get restless once more. Pt was helped to chair and soon after stated he wanted to leave, refused Valium. MD Morrissey was notified and came to see and speak to pt in person. AMA form was signed w/ physician in room. Pt gathered belongings, PICC line was DC'd w/ catheter intact. Pt left building alongside security staff.
--- NOTE | 2017-01-17 16:54 | PCM.DC.MED ---
Discharge Summary Date of Service Jan 17, 2017 Dates of Hospitalization Date of Hospital Admission Jan 07, 2017 at 00:52 Date of Discharge: Jan 17, 2017 Providers: Admitting Physician: Dionicio Perez MD Primary Care Physician: Nopaly Attending Physician: Nury Peña DO Diagnosis at Time of Discharge Diagnosis at Time of Discharge Alcohol Intoxication and withdrawal syndrome. Present on admission Increase urine output, not present on admission. Resolved Acute Hypertensive urgency, not present on admission. Active. Systolic CHF, probably chronic, due to ischemic cardiomyopathy versus chronic cardiomyopathy Active Elevated troponin. Present on admission resolving History of CAD Polysubstance dependence (Heroine and Meth) Nicotine dependence Consultations Pulmonology: Dr. Tsang Procedures XRay, CTs & MRIs CT BRAIN WITHOUT CONTRAST IMPRESSION: 1. No acute intracranial abnormality. 2. Right scalp hematoma without evidence of fracture. Dictated by: Jordan Dumont M.D. on 01/16/2017 at 8:11 Approved by: Jordan Dumont M.D. on 01/16/2017 at 8:13 X-RAY PICC LINE PLACEMENT BY NURSE IMPRESSION: Tip of PICC projected over the lower SVC . Dictated by: Gabriel Mujica RRA Interpreted: Reba Chamberlain MD on 01/12/2017 at 11:50 Approved by: Reba Chamberlain M.D. on 01/12/2017 at 13:53 X-RAY CHEST ONE VIEW, PORTABLE IMPRESSION: Cardiomegaly. No evidence of edema, nor pneumonia. Dictated by: Aj Lion M.D. on 01/11/2017 at 19:27 Approved by: Aj Lion M.D. on 01/11/2017 at 19:28 X-RAY CHEST, TWO VIEWS IMPRESSION: No radiographic evidence of acute cardiopulmonary pathology. Dictated by: Igor Ojeda M.D. on 01/07/2017 at 8:35 Approved by: Igor Ojeda M.D. on 01/07/2017 at 8:35 Brief History Mary Lou Munroe is a 51 year old male with reported history of Coronary disease, methamphetamine abuse, heroin abuse and alcohol abuse who presents to [facility] emergency department requesting detox. Patient reported he was devastated that he broke up with his long time girlfriend and started drinking again to cope. His last drink was this morning. He also shoots Heroine and Meth about injected himself 4 days ago. Patient was admitted for chest pain and alcohol and meth withdrawal patient is high riskas he had a heart attack 6 years ago and a Stroke. The pt has been noncompliant with his cardiac medications since he began using which was 4 months ago. While in the hospital the patient became combative and was placed on CIWA protocol beginning with an Ativan drip at 15 mg/hour. Patient was subsequently weaned as tolerated over the course of 7 days. As he became more awake and alert his home meds were restarted including aspirin, metoprolol and lisinopril. Physical therapy began working with the patient at that point to ensure that he was strong enough to be able to be discharged, however due to his long stay in the hospital his condition had deteriorated significantly and he was expected to remain for another few days to ensure appropriate transition to drug and alcohol rehabilitation. Social work was also consulted and was in the process of providing options to the patient is far as follow-up for drug rehabilitation. On the morning of 01/17 the patient decided to leave [facility]. Hospital Course Mary Lou Munroe is a 51 year old male with reported history of Coronary disease, methamphetamine abuse, heroin abuse and alcohol abuse who presents to [facility] emergency department requesting detox but was found to have elevated troponin. However, acute coronary pathology has been ruled out at this time and it is likely that this patient was undergoing a difficult withdrawal from alcohol and this is what precipitated his elevated troponins. Alcohol Intoxication and withdrawal syndrome. Present on admission Last drink 01/06/17 morning. History of Alcohol withdrawal seizures. Patient has previously had detox years ago. During this encounter, he has been very aggressive spontaneously after a somnolent period requiring immediate valium. Valium seems to last almost 3 hours before each episode. - CIWA protocol initiated,Continue Thiamine, folate, multivitamin - platform material handler manager consult for placement and resources - Lorazepam drip started 1800 on 01/09/17. DC'd on 01/14 - Patient is awake and tolerating oral intake. Increase urine output, not present on admission. Resolved - On 01/12 and 01/13 the patient urinated a total of 19 L of fluid, starting 01/14 patient's fluid output decreased to normal levels. - Serum osmolality and urine osmolality, and BMP obtained on the night of 01/13 and were within normal limits. - This likely represents fluid shift, no concern for acute process at this time. - Dr. Spear from Nephrology is aware of the patient. Acute Hypertensive urgency, not present on admission. Active. - BP initially 150/110. Likely related to Agitation. - Today blood pressures remain within normal limits without use of pressors. - Continue Metoprolol 25 mg PO BID - Continue to monitor Systolic CHF, probably chronic, due to ischemic cardiomyopathy versus chronic cardiomyopathy Active - Echocardiogram EF 20% - Patient had history of HI 6 years ago. No echocardiogram to compare with. He presented with mild chest pain 2/10 and borderline troponin. Discussed with cardiology . Patient not in acute decompensation. Patient noncompliant on medications and started on aspirin, statin and beta estella. Not a candidate for intervention. We will optimize CHF regimen and advise patient to see banquet server on call Dr Soler outpatient for workup of cardiomyopathy. - Encouraged to quit alcohol. - Aspirin, oral metoprolol and lisinopril re-initiated as patient is now tolerating oral meds. Elevated troponin. Present on admission resolving - EKG showed no ischemic changes. No EKG to compare with - Echo as above. EF 20% with severely dilated left ventricle - Downtrending troponin. Level was borderline and unlikely to represent acute infarction - Continue Aspirin, and metoprolol - Prescriptions needs upon discharge for ASA, BB, ACEI and statin History of CAD - Continue Aspirin and metoprolol, lisinopril Polysubstance dependence (Heroine and Meth) Risk for endocarditis but no infectious symptoms at this time. - Continue monitor for withdrawal symptoms - Case management to discuss chemical dependency programs once patient is more alert Nicotine dependence Cessation discussed and encouraged - Nicotine patch upon request - Acetaminophen as needed for mild pain/fever/headache - Bowel regimen as needed - Antiemetic as needed High-risk medications: IV Lorazepam. Disposition: Patient is still in active withdrawal but does seem to be improving daily. Will discharge when medically stable. Exam Vital Signs (Last) Date Time Temp Pulse Resp B/P Pulse Ox O2 Delivery O2 Flow Rate FiO2 01/17/17 05:42 90 01/17/17 03:45 36.4 20 146/91 100 Room Air 01/13/17 16:00 2.00 Exam Patient left AMA before I was able to complete my physical exam. Test 01/06/17 22:14 01/07/17 00:17 01/07/17 09:09 01/08/17 08:26 Prothrombin Time 12.2sec (8.1-12.5) Prothromb Time International Ratio 1.14ratio Hold [place] Top Tube Received (Received) Hold Urine Received (Received) Ammonia 51ug/dL (18-53) Troponin T 0.010ug/L (0.0-0.011) Phosphorus Level 3.9mg/dL (2.5-4.9) Magnesium Level 1.9mg/dL (1.6-2.6) Test 01/09/17 05:10 01/12/17 19:25 01/12/17 21:19 01/12/17 23:51 Hepatitis B Surface Antigen Negative (Negative) Hepatitis C Antibody 0.2s/co ratio (0.0-0.9) HIV (1&2) Ag and Ab, 4th Generation Non reactive (Non Reactive) Osmolality 301 (275-300) Urine Osmolality 457mOs/kH2O (250-1200) Urine Color Straw (YELLOW) Urine Appearance Clear (CLEAR,HAZY) Urine pH 8.0 (5.0-8.0) Urine Specific [place] 1.009 (1.003-1.035) Urine Protein Negativemg/dL (NEG,TRACE) Urine Glucose (UA) Negativemg/dL (NEGATIVE) Urine Ketones Negativemg/dL (NEGATIVE) Urine Occult Blood Moderate (NEGATIVE) Urine Nitrite Negative (NEGATIVE) Urine Bilirubin Negative (NEGATIVE) Urine Urobilinogen Normalmg/dL (NORMAL) Urine Leukocyte Esterase Small (NEGATIVE) Urine RBC 11-50/hpf (0-2) Urine WBC 6-10/hpf (0-5) Urine Epithelial Cells Occasional/hpf (NONE-MOD) Urine Crystals None seen (NONE SEEN) Urine Bacteria Few/hpf (NONE-FEW) Urine Hyaline Casts None/lpf (NONE) Urine Granular Casts None seen (NONE SEEN) Urine Waxy Casts None seen (NONE SEEN) Urine Red Blood Cell Casts None seen (NONE SEEN) Urine White Blood Cell Casts None seen (NONE SEEN) Urine Mucus Present (None Seen) Urine Trichomonas None seen (NONE SEEN) Urine Yeast None (NONE SEEN) Urinalysis Comment None Urine Culture Reflexed Indicated Test 01/16/17 11:15 White Blood Count 6.9th/mm3 (3.8-10.1) Red Blood Count 4.67mil/mm3 (4.40-5.80) Hemoglobin 14.1g/dL (13.8-17.2) Hematocrit 41.9% (41.0-50.0) Mean Corpuscular Volume 89.7fL (81-100) Mean Corpuscular Hemoglobin 30.2pg (27.0-35.0) Mean Corpuscular Hemoglobin Concent 33.7% (32.0-37.0) Red Cell Distribution Width 16.9% (12.3-15.4) Platelet Count 156bil/L (150-400) Neutrophils (%) (Auto) 55.8% (40-74) Lymphocytes (%) (Auto) 28.2% (14-46) Monocytes (%) (Auto) 11.8% (4-12) Eosinophils (%) (Auto) 3.5% (0-5) Basophils (%) (Auto) 0.7% (0-3) Sodium Level 138mEq/L (134-144) Potassium Level 4.2mEq/L (3.5-5.2) Chloride Level 101mEq/L (97-108) Carbon Dioxide Level 25mmol/L (18-29) Blood Urea Nitrogen 13mg/dL (6-24) Creatinine 0.77mg/dL (0.76-1.27) Estimat Glomerular Filtration Rate 114mL/min (>59) Glucose Level 153mg/dL (60-99) Calcium Level 8.7mg/dL (8.5-10.1) Total Bilirubin 0.7mg/dL (0.0-1.2) Aspartate Amino Transf (AST/SGOT) 49U/L (0-50) Alanine Aminotransferase (ALT/SGPT) 38U/L (0-44) Alkaline Phosphatase 94U/L (25-150) Total Protein 6.0g/dL (6.4-8.4) Albumin 3.2g/dL (3.4-5.0) Microbiology Results Bacterial cultures 2 no growth Discharge Medications No Active Prescriptions or Reported Meds Additional med instructions Patient left AMA before instructions could be given for medications. Followup Plan Disposition: Patient left AMA Attending Statement The patient was seen and examined together with Dr. Worrell on 01/17/17 and I have added additional information to the note above. Zion Worrell DO Jan 17, 2017 13:54 Nury Peña DO Jan 18, 2017 14:14
== END 2017-01-17 05:35 | disposition left against medical advice (07) | DRG 770 ==
LOC: SED 20:20 → MPC 01-07 00:52 → CCU 01-09 02:49 → PCC 01-14 15:35
PROVIDERS: ADMIT Hospitalist; ATTEND Hospitalist
DX: F10.231 Alcohol dependence with withdrawal delirium (principal); I24.8 Other forms of acute ischemic heart disease; I50.22 Chronic systolic (congestive) heart failure; I11.0 Hypertensive heart disease with heart failure; F11.10 Opioid abuse, uncomplicated; F15.10 Other stimulant abuse, uncomplicated; I16.0 Hypertensive urgency; F17.210 Nicotine dependence, cigarettes, uncomplicated; Z59.0 Homelessness; I25.2 Old myocardial infarction; Z86.73 Personal history of transient ischemic attack (TIA), and cerebral infarction without residual deficits; Z91.14 Patient's other noncompliance with medication regimen; I25.10 Atherosclerotic heart disease of native coronary artery without angina pectoris